=== PATIENT | female | born 1975 | race Hispanic/Latino ===

== ENCOUNTER 2017-11-12 13:38 | Inpatient (IN) | payer MEDICARE, OTHER ==
[~2017-11-12] VITALS: Ht 167.6 cm; Wt 79.8 kg
[~2017-11-12 13:38] MED LIST: ASCORBIC ACID500 MG PO; BENTYL10 MG PO; CARAFATE1 GM PEG; CARAFATE1 GM/10 ML PO; CARVEDILOL6.25 MG PO; CYMBALTA20 MG; CYMBALTA60 MG PO; DEXILANT60 MG PO; DOK100 MG PO; DOXEPIN HCL75 MG PO; FEOSOL325 MG PO; GABAPENTIN100 MG PO; HUMALOG100 UNITS/ SQ; HUMULIN 70100 UNIT/1 SC; KLOR-CON M2020 MEQ PO; LACTULOSE20 GM/30 M PO; LANTUS100 UNIT/1 SQ; LANTUS100 UNITS/ SC; LISINOPRIL5 MG PO; LOVENOX40 MG/0.4 SC; LYRICA75 MG PO; METFORMIN HCL500 MG PO; METOCLOPRAMIDE10 MG PO; NEXIUM40 MG PO; NORCO 7.5-3251 EACH PO; NOVOLOG100 UNIT/1 SQ; ONDANSETRON4 MG/2 M1 IV; PROTONIX40 MG/ML PO; REGLAN10 MG PO; TRAZODONE HCL50 MG PO; TRIPLE ANTIBIO0.9 GM TOP; ULTRAM50 MG PO; VITAL CAL GT; ZOFRAN4 MG PO; insulin; lisinopril
[2017-11-12 14:12] LABS: BILIRUBIN,URINE NEGATIVE (NEGATIVE); KETONES,URINE 2+ (NEGATIVE); LEUKOCYTE ESTERASE ,URINE NEGATIVE (NEGATIVE); NITRITE,URINE NEGATIVE (NEGATIVE); URINE UROBILINOGEN 0.2 mg/dL (0.2 - 1)
[2017-11-12 14:14] LABS: CLARITY,URINE HAZY (CLEAR); COLOR,URINE YELLOW (YELLOW); PROTEIN,URINE DIPSTICK 2+ (NEGATIVE)
[2017-11-12 14:19] LABS: RBC,URINE 0-5 /HPF (0-5); WBC,URINE (MAN) 0-5 /HPF (0-5)
[2017-11-12 14:20] LABS: BACTERIA,URINE FEW /HPF; EPITHELIAL CELLS,URINE MODERATE /LPF
[2017-11-12] MEDS ORDERED: SODIUM CHLORIDE FLUSH 10 ML SYR INJ PRN (14:30)
[2017-11-12] MEDS ORDERED: KETOROLAC TROMETHAMINE 30 MG/ML VIAL IV ONE (14:45)
[2017-11-12] MEDS ORDERED: ONDANSETRON HCL INJ 2 MG/ML VIAL IV ONE (14:45)
[2017-11-12 16:22] LABS: BASOPHILS % 0.3 % (0.0-1.0); HEMATOCRIT 32.6 % (34.2-44.1); HEMOGLOBIN 10.7 g/dL (12.0-16.0); LYMPHOCYTES # (AUTO) 0.7 (1.0-3.2); LYMPHOCYTES % 6.6 % (18.0-39.1); MEAN CORPUSCULAR HEMOGLOBIN 31.4 pg (28-32); MEAN CORPUSCULAR HGB CONC 32.8 g/dL (31-35); MEAN CORPUSCULAR VOLUME 95.6 fL (81-99); MONOCYTES # (AUTO) 0.2 (0.2-0.8); MONOCYTES % 2.2 % (4.4-11.3); NEUTROPHILS # (AUTO) 9.3 (2.1-6.9); NEUTROPHILS % 90.6 % (38.7-80.0); PLATELET COUNT 186 x10e3/uL (140-360); RED BLOOD COUNT 3.41 x10e6/uL (3.6-5.1); RED CELL DISTRIBUTION WIDTH 11.9 % (11.7-14.4)
[2017-11-12 16:39] LABS: ALBUMIN 4.1 g/dL (3.5-5.0); ANION GAP 17.3 mmol/L (8-16); CALCIUM 9.1 mg/dL (8.4-10.2); CREATININE, SERUM 1.46 mg/dL (0.57-1.11); POTASSIUM 4.3 mmol/L (3.5-5.1)
[2017-11-12] MEDS ORDERED: HYDROMORPHONE 2MG/ML INJ IV ONE ×2 (17:15→19:00)
[2017-11-12] MEDS ORDERED: NIFEDIPINE 10 MG CAP PO STA (18:14)
[2017-11-12] MEDS ORDERED: SODIUM CHLORIDE 0.9% 1000ML 1,000 ML IV SCH ×2 (18:15→19:27)
[2017-11-12] MEDS ORDERED: PROMETHAZINE 25MG/ NS 50ML (IV) IV ONE (18:30)
[2017-11-12] MEDS ORDERED: FOSAMAX70 MG PO (19:19)
[2017-11-12] MEDS ORDERED: DEXTROSE 50% SYRINGE 50 ML IV PRN (19:30)
[2017-11-12] MEDS: SODIUM CHLORIDE 0.9% 1000ML 1,000 ML IV SCH (20:00)
[2017-11-12] MEDS: SUCRALFATE 1 GM TAB PO SCH (21:40)
[2017-11-12] MEDS: HYDROMORPHONE 2MG/ML INJ IV PRN (21:43)
[2017-11-12] MEDS: ONDANSETRON HCL INJ 2 MG/ML VIAL IV PRN (21:44)
[2017-11-12] MEDS: INSULIN REGULAR, HUMAN 100 UNIT/1 ML 3ML VIAL SQ SCH (22:00)
[2017-11-13] VITALS (8 sets, daily range): BP systolic 101–144; BP diastolic 57–90
[2017-11-13] MEDS: METOCLOPRAMIDE HCL 10 MG/2ML VIAL IV SCH ×2 (00:45→06:18)
[2017-11-13] MEDS: HYDROMORPHONE 2MG/ML INJ IV PRN ×6 (00:46→21:12)
[2017-11-13] MEDS: ONDANSETRON HCL INJ 2 MG/ML VIAL IV PRN ×4 (04:21→21:12)
[2017-11-13] MEDS: SODIUM CHLORIDE 0.9% 1000ML 1,000 ML IV SCH ×2 (06:12→17:16)
[2017-11-13 06:16] LABS: BASOPHILS % 0.2 % (0.0-1.0); EOSINOPHILS % 0.3 % (0.0-6.0); HEMATOCRIT 25.8 % (34.2-44.1); HEMOGLOBIN 8.9 g/dL (12.0-16.0); LYMPHOCYTES # (AUTO) 1.9 (1.0-3.2); LYMPHOCYTES % 17.3 % (18.0-39.1); MEAN CORPUSCULAR HEMOGLOBIN 31.3 pg (28-32); MEAN CORPUSCULAR HGB CONC 34.5 g/dL (31-35); MEAN CORPUSCULAR VOLUME 90.8 fL (81-99); MONOCYTES # (AUTO) 0.8 (0.2-0.8); NEUTROPHILS # (AUTO) 8.1 (2.1-6.9); PLATELET COUNT 143 x10e3/uL (140-360); RED BLOOD COUNT 2.84 x10e6/uL (3.6-5.1); RED CELL DISTRIBUTION WIDTH 11.7 % (11.7-14.4)
[2017-11-13 06:32] LABS: ALBUMIN 3.2 g/dL (3.5-5.0); ANION GAP 13.7 mmol/L (8-16); CALCIUM 8.1 mg/dL (8.4-10.2); CREATININE, SERUM 1.08 mg/dL (0.57-1.11); POTASSIUM 3.7 mmol/L (3.5-5.1)
[2017-11-13] MEDS: INSULIN REGULAR, HUMAN 100 UNIT/1 ML 3ML VIAL SQ SCH ×4 (07:30→21:04)
[2017-11-13] MEDS: SUCRALFATE 1 GM TAB PO SCH ×4 (07:50→21:02)
[2017-11-13] MEDS: PANTOPRAZOLE 40 MG 10ML VIAL IV SCH ×2 (09:02→17:16)
[2017-11-13] MEDS ORDERED: METOCLOPRAMIDE HCL 10 MG/2ML VIAL IV PRN (10:30)
[2017-11-13 10:51] LABS: CHOL/HDL RATIO 2.8 (3.0-3.6)
[2017-11-13] MEDS: LEVOFLOXACIN 500MG/D5W 100ML 100 ML IV SCH (11:00)
[2017-11-13] MEDS: METRONIDAZOLE 500MG/NS 100ML 100 ML IV SCH ×2 (14:30→21:02)
[2017-11-14] VITALS (8 sets, daily range): BP systolic 92–173; BP diastolic 50–105
[2017-11-14] MEDS: SODIUM CHLORIDE 0.9% 1000ML 1,000 ML IV SCH ×4 (01:45→21:45)
[2017-11-14] MEDS: ONDANSETRON HCL INJ 2 MG/ML VIAL IV PRN ×3 (03:03→22:57)
[2017-11-14] MEDS: HYDROMORPHONE 2MG/ML INJ IV PRN ×7 (03:03→22:57)
--- NOTE | 2017-11-14 04:21 | History and Physical ---
PRIMARY CARE PHYSICIAN: Dr. Tejeda. Gastroenterology, Dr. Melissa. Neurosurgeon, Dr. Landaverde. CHIEF COMPLAINT: Abdominal pain, nausea, vomiting, and back pain. HISTORY OF PRESENT ILLNESS: This is a 42-year-old woman with a history of diabetic gastroparesis and lumbar disease with osteomyelitis in 2015, now developing nausea, vomiting and abdominal pain with radiation to the lower back. Therefore, she came to the hospital. Here, she was found to have acute kidney injury and severe lumbar stenosis with lumbar diskitis and other findings. She is admitted for further evaluation and management. PAST MEDICAL HISTORY: Diabetes mellitus; diabetic gastroparesis status post gastric pacemaker, status post removal; anemia; depression; osteomyelitis at the lumbar region in July 2016. PAST SURGICAL HISTORY: Cholecystectomy; appendectomy; hysterectomy; tubal ligation; carpal tunnel release surgery; eye surgery; lumbar surgery; partial gastric resection; gastric pacemaker, status post removal; PEG tube placement, status post removal. ALLERGIES: PER ELECTRONIC MEDICAL RECORDS. FAMILY HISTORY/SOCIAL HISTORY: Patient is . She has 1 child. No alcohol or history of cigarettes. MEDICATIONS: Per electronic medical records. REVIEW OF SYSTEMS: Denies any dizziness or chest pain. PHYSICAL EXAMINATION VITAL SIGNS: Reviewed. GENERAL APPEARANCE: A tired-appearing woman resting in the bed. HEENT: Anicteric. Pupils responsive to light. No oral lesions. CARDIOVASCULAR: Normal S1 and S2. LUNGS: Moderate breath sounds. ABDOMEN: Soft and nondistended. She has tenderness in the periumbilical region, but there is also diffuse tenderness in the abdomen. EXTREMITIES: No edema or calf tenderness. NEUROLOGIC: She is alert and oriented times 3. She moved all extremities. SKIN: Dry. PSYCHIATRIC: Flat affect. LABS: Reviewed. MEDICATIONS: Reviewed. ASSESSMENT AND PLAN: A 42-year-old woman with 1. Acute gastroenteritis. We will treat with Flagyl and Levaquin. 2. Acute kidney injury. Rehydrate and re-assess. 3. Severe lumbar stenosis/lumbar diskitis and possible osteomyelitis. She has had of the lumbar region in the past. She did have leukocytosis on admission, was tachycardic but did not have a fever. Blood pressure has been high, but that has fallen to 101/57. Unclear as whether there is any ongoing infection. Will need a magnetic resonance imaging to further evaluate. 4. Normocytic anemia, moderate. We will follow up and consider anemia panel. 5. Diabetes mellitus. We will obtain hemoglobin A1c and lipid panel. 6. Diabetic gastroparesis. We will continue sucralfate proton-pump inhibitor and use p.r.n. Reglan. 7. Prophylaxis: Continue proton-pump inhibitor and sequential compression device. DISPOSITION: MRI of the lumbar region. In the meantime, we will empirically use Levaquin and Flagyl for gastroenteritis. Job#: [id number]
[2017-11-14] MEDS: METRONIDAZOLE 500MG/NS 100ML 100 ML IV SCH ×3 (05:47→21:08)
[2017-11-14] MEDS: INSULIN REGULAR, HUMAN 100 UNIT/1 ML 3ML VIAL SQ SCH ×4 (07:30→19:51)
[2017-11-14] MEDS: SUCRALFATE 1 GM TAB PO SCH ×4 (08:42→21:00)
[2017-11-14] MEDS: PANTOPRAZOLE 40 MG 10ML VIAL IV SCH ×2 (08:42→16:20)
[2017-11-14] MEDS: LEVOFLOXACIN 500MG/D5W 100ML 100 ML IV SCH (09:03)
[2017-11-14 10:22] LABS: BASOPHILS % 0.8 % (0.0-1.0); EOSINOPHILS # (AUTO) 0.1 (0.0-0.4); EOSINOPHILS % 2.1 % (0.0-6.0); HEMATOCRIT 26.5 % (34.2-44.1); HEMOGLOBIN 8.9 g/dL (12.0-16.0); LYMPHOCYTES # (AUTO) 1.7 (1.0-3.2); LYMPHOCYTES % 32.5 % (18.0-39.1); MEAN CORPUSCULAR HEMOGLOBIN 30.8 pg (28-32); MEAN CORPUSCULAR HGB CONC 33.6 g/dL (31-35); MEAN CORPUSCULAR VOLUME 91.7 fL (81-99); MONOCYTES # (AUTO) 0.4 (0.2-0.8); MONOCYTES % 7.9 % (4.4-11.3); NEUTROPHILS % 56.5 % (38.7-80.0); RED BLOOD COUNT 2.89 x10e6/uL (3.6-5.1); RED CELL DISTRIBUTION WIDTH 11.6 % (11.7-14.4)
[2017-11-14] MEDS ORDERED: LORAZEPAM INJ 2 MG/ML VIAL IV ONE (10:30)
[2017-11-14 10:41] LABS: PLATELET COUNT 138 x10e3/uL (140-360)
[2017-11-14] MEDS: METOCLOPRAMIDE HCL 10 MG/2ML VIAL IV SCH ×2 (13:06→18:35)
--- NOTE | 2017-11-14 14:08 | Diagnostic Imaging Report ---
EXAMINATION: MRI of the lumbar spine without contrast HISTORY: Low back pain since one week, history of lumbar osteomyelitis suspected discitis COMPARISON: Lumbar spine MRI on 08/24/2016 TECHNIQUE: Sagittal T1, T2, STIR; axial T2 and proton density. FINDINGS: It is assumed that there are 5 lumbar vertebrae. Curvature/Alignment: Mild kyphotic malalignment centered at L4-5 Vertebrae: Interval improvement of previously seen discitis osteomyelitis at L4-5. There is farther compression deformity of the L4 and L5 vertebral bodies, no interbody fusion is seen at this time. The bone marrow is completely fatty replaced at L4 and L5. Resolution of previously seen paraspinal soft tissues inflammatory changes. Conus: Normal, terminating at T12 Cauda equina: Unremarkable. Lower thoracic: Unremarkable. Paraspinal soft tissues: Unremarkable. Degenerative changes: L1-L2: Unremarkable. L2-L3: Unremarkable. L3-L4: Unremarkable. L4-L5: Progression of intervertebral disc collapse, persistent marginal disc osteophyte asymmetric to the left, as well as facet arthrosis. Mild right and moderately severe left foraminal stenosis. Partial effacement of the left lateral recess. L5-S1: Facet arthrosis without stenosis Sacroiliac joints: Mild degenerative changes with marginal osteophytes seen in the right. IMPRESSION: 1. Resolution of previously seen discitis osteomyelitis at L4-L5. No new acute infection. 2. Worsening L4 and L5 vertebral bodies partial collapse, with L4-L5 kyphotic malalignment . No interbody fusion. 3. Moderately severe left and mild right foraminal stenosis at L4-L5. Signed by: Dr. Agnieszka Crowder M.D. on 11/14/2017 2:04 PM
[2017-11-15] VITALS: BP 144/87
[2017-11-15] MEDS: METOCLOPRAMIDE HCL 10 MG/2ML VIAL IV SCH ×4 (00:34→17:29)
[2017-11-15] MEDS: HYDROMORPHONE 2MG/ML INJ IV PRN ×6 (02:09→21:45)
[2017-11-15 04:00] VITALS: BP 127/81
[2017-11-15 05:58] LABS: BASOPHILS % 0.4 % (0.0-1.0); EOSINOPHILS # (AUTO) 0.1 (0.0-0.4); EOSINOPHILS % 2.6 % (0.0-6.0); HEMATOCRIT 25.7 % (34.2-44.1); HEMOGLOBIN 8.9 g/dL (12.0-16.0); LYMPHOCYTES # (AUTO) 1.7 (1.0-3.2); LYMPHOCYTES % 33.9 % (18.0-39.1); MEAN CORPUSCULAR HEMOGLOBIN 30.4 pg (28-32); MEAN CORPUSCULAR HGB CONC 34.6 g/dL (31-35); MEAN CORPUSCULAR VOLUME 87.7 fL (81-99); MONOCYTES # (AUTO) 0.4 (0.2-0.8); NEUTROPHILS # (AUTO) 2.8 (2.1-6.9); NEUTROPHILS % 54.9 % (38.7-80.0); PLATELET COUNT 153 x10e3/uL (140-360); RED BLOOD COUNT 2.93 x10e6/uL (3.6-5.1); RED CELL DISTRIBUTION WIDTH 11.2 % (11.7-14.4)
[2017-11-15] MEDS: METRONIDAZOLE 500MG/NS 100ML 100 ML IV SCH ×3 (06:05→21:33)
[2017-11-15 06:17] LABS: % IRON SATURATION 36 % (15-50); ANION GAP 12.3 mmol/L (8-16); BLOOD UREA NITROGEN 6 mg/dL (7-26); BUN/CREATININE RATIO 8 (6-25); CALCIUM 8.2 mg/dL (8.4-10.2); CARBON DIOXIDE 23 mmol/L (22-29); CHLORIDE 104 mmol/L (98-107); CREATININE, SERUM 0.79 mg/dL (0.57-1.11); EST GLOMERULAR FILTRATION RATE > 60 ML/MIN (60-); GLUCOSE 121 mg/dL (74-118); IRON 70 ug/dL (50-170); POTASSIUM 3.3 mmol/L (3.5-5.1); SODIUM 136 mmol/L (136-145); TOTAL IRON BINDING CAPACITY 192 ug/dL (261-478); TRANSFERRIN 137 mg/dL (180-382)
[2017-11-15 06:41] LABS: FERRITIN 528.41 ng/mL (4.63-204.00)
[2017-11-15 06:54] LABS: FOLATE 17.7 ng/mL (7.0-15.4)
[2017-11-15] MEDS: INSULIN REGULAR, HUMAN 100 UNIT/1 ML 3ML VIAL SQ SCH ×4 (07:30→23:37)
[2017-11-15] MEDS: SUCRALFATE 1 GM TAB PO SCH ×4 (07:30→21:33)
[2017-11-15 08:18] VITALS: BP 124/66
[2017-11-15] MEDS: PANTOPRAZOLE 40 MG 10ML VIAL IV SCH ×2 (08:45→17:29)
[2017-11-15] MEDS: SODIUM CHLORIDE 0.9% 1000ML 1,000 ML IV SCH ×2 (09:46→17:45)
[2017-11-15] MEDS ORDERED: POTASSIUM CHLORIDE 20MEQ/100ML 100 ML IV ONE (10:00)
[2017-11-15 12:33] VITALS: BP 127/66
[2017-11-15] MEDS: LEVOFLOXACIN 500MG/D5W 100ML 100 ML IV SCH (12:33)
[2017-11-15 16:49] VITALS: BP 119/64
[2017-11-15 20:00] VITALS: BP 124/72
[2017-11-15] MEDS: ONDANSETRON HCL INJ 2 MG/ML VIAL IV PRN (21:56)
[2017-11-16] VITALS (8 sets, daily range): BP systolic 123–153; BP diastolic 70–89
[2017-11-16] MEDS: HYDROMORPHONE 2MG/ML INJ IV PRN ×5 (02:58→20:58)
[2017-11-16] MEDS: METOCLOPRAMIDE HCL 10 MG/2ML VIAL IV SCH ×4 (03:21→17:19)
[2017-11-16] MEDS: SODIUM CHLORIDE 0.9% 1000ML 1,000 ML IV SCH ×2 (03:45→13:05)
[2017-11-16] MEDS: METRONIDAZOLE 500MG/NS 100ML 100 ML IV SCH ×3 (05:14→22:14)
[2017-11-16 06:08] LABS: BASOPHILS % 0.4 % (0.0-1.0); EOSINOPHILS # (AUTO) 0.1 (0.0-0.4); EOSINOPHILS % 2.1 % (0.0-6.0); HEMATOCRIT 24.9 % (34.2-44.1); HEMOGLOBIN 8.8 g/dL (12.0-16.0); LYMPHOCYTES # (AUTO) 1.7 (1.0-3.2); LYMPHOCYTES % 35.3 % (18.0-39.1); MEAN CORPUSCULAR HGB CONC 35.3 g/dL (31-35); MEAN CORPUSCULAR VOLUME 87.7 fL (81-99); MONOCYTES # (AUTO) 0.4 (0.2-0.8); MONOCYTES % 7.6 % (4.4-11.3); NEUTROPHILS # (AUTO) 2.7 (2.1-6.9); NEUTROPHILS % 54.4 % (38.7-80.0); PLATELET COUNT 159 x10e3/uL (140-360); RED BLOOD COUNT 2.84 x10e6/uL (3.6-5.1); RED CELL DISTRIBUTION WIDTH 11.2 % (11.7-14.4)
[2017-11-16 06:37] LABS: ANION GAP 11.2 mmol/L (8-16); BLOOD UREA NITROGEN 7 mg/dL (7-26); BUN/CREATININE RATIO 9 (6-25); CALCIUM 8.2 mg/dL (8.4-10.2); CARBON DIOXIDE 27 mmol/L (22-29); CHLORIDE 104 mmol/L (98-107); CREATININE, SERUM 0.81 mg/dL (0.57-1.11); EST GLOMERULAR FILTRATION RATE > 60 ML/MIN (60-); GLUCOSE 136 mg/dL (74-118); POTASSIUM 3.2 mmol/L (3.5-5.1); SODIUM 139 mmol/L (136-145)
[2017-11-16] MEDS: INSULIN REGULAR, HUMAN 100 UNIT/1 ML 3ML VIAL SQ SCH ×4 (07:30→21:02)
[2017-11-16] MEDS: SUCRALFATE 1 GM TAB PO SCH ×4 (08:58→20:57)
[2017-11-16] MEDS: PANTOPRAZOLE 40 MG 10ML VIAL IV SCH ×2 (08:58→17:19)
[2017-11-16] MEDS ORDERED: POTASSIUM CHLORIDE 20 MEQ TAB CR PO STA (09:20)
[2017-11-16] MEDS: ONDANSETRON HCL INJ 2 MG/ML VIAL IV PRN ×3 (09:37→20:58)
[2017-11-16] MEDS: CYANOCOBALAMIN INJ 1,000 MCG/ML VIAL IM SCH (09:38)
[2017-11-16] MEDS: LEVOFLOXACIN 500MG/D5W 100ML 100 ML IV SCH (09:38)
[2017-11-16] MEDS: DOCUSATE SODIUM LIQD 100 MG/10 ML UDC NG SCH (17:21)
[2017-11-17] VITALS: BP 136/84
[2017-11-17] MEDS: METOCLOPRAMIDE HCL 10 MG/2ML VIAL IV SCH ×3 (00:33→12:22)
[2017-11-17] MEDS: HYDROMORPHONE 2MG/ML INJ IV PRN ×5 (00:33→14:40)
--- NOTE | 2017-11-17 01:20 | Progress Note ---
DATE: November 16, 2017 SYNTHETIC FILAMENT SPINNER: Dr. Jaskaran Tejeda. CHIEF COMPLAINT: Dehydration, gastroparesis, vomiting DIET: Cardiac diet. ALLERGIES: NO KNOWN DRUG ALLERGIES. SUBJECTIVE: Patient reports feeling much better, requesting to be discharged. MEDICATIONS: Please see MAR. OBJECTIVE VITALS: Temperature 98.1, pulse 90, blood pressure 126/73, respirations 18, satting 96%. BMI 28.4. GENERAL: Patient is awake, alert, oriented times 3. Speech is clear. LUNGS: Clear to auscultation bilaterally with normal respiratory efforts. HEENT: Extraocular muscles are intact. Sclerae are anicteric. ABDOMEN: Soft. Bowel sounds present. It is nontender, nondistended. CARDIOVASCULAR: Regular rate and rhythm. NECK: Supple. Trachea is midline. EXTREMITIES: No calf tenderness. No edema. NEUROLOGICAL: Nonfocal. LABS: Sodium 139, potassium 3.2, chloride 104, CO2 27, BUN 7, creatinine 0.81, glucose 136. White count 4.87; hemoglobin 8.8, came down from 8.9 yesterday; hematocrit 24.9, came down from 25.7; platelets 159,000. MRI results read: Impression, 1. Resolution of previously seen dissecting osteomyelitis at L4-L5, no acute infection. 2. Worsening L4-L5 vertebral bodies, partially collapsed with L4-L5 kyphotic malalignment. No interbody fusion. 3. Moderately severe left and mild right foraminal stenosis at L4-L5. DIAGNOSES 1. Acute gastroenteritis that has been resolved. 2. Acute kidney injury: Creatinine is now 0.81 which is stable. 3. Hypokalemia: We will replete with potassium 40 mEq p.o. times 1 dose. 4. Severe lumbar stenosis: This will likely need to be treated as outpatient and be followed up by a neurosurgeon for possible surgical interventions, but will require further workup as outpatient. 5. Anemia: Today is 8.8. Will collect stools for occult blood. 6. Diabetes mellitus type 2: Will continue on sliding scale and monitor blood sugars. 7. Vitamin B12 deficiency: Patient's total iron binding capacity is 192, low. Will start patient on vitamin B12 1000 mcg 1 p.o. daily. 8. Gastroparesis: Will continue on Reglan and pain medication. Dictated by Andrew Rodriguez NP. Job#: [id number]
[2017-11-17] MEDS: ONDANSETRON HCL INJ 2 MG/ML VIAL IV PRN ×2 (04:25→11:39)
[2017-11-17] MEDS: SODIUM CHLORIDE 0.9% 1000ML 1,000 ML IV SCH ×2 (04:34→09:45)
[2017-11-17 04:38] VITALS: BP 118/73
[2017-11-17] MEDS: METRONIDAZOLE 500MG/NS 100ML 100 ML IV SCH ×2 (05:56→14:00)
[2017-11-17 06:46] LABS: BASOPHILS % 0.6 % (0.0-1.0); EOSINOPHILS # (AUTO) 0.1 (0.0-0.4); EOSINOPHILS % 2.8 % (0.0-6.0); HEMATOCRIT 23.7 % (34.2-44.1); HEMOGLOBIN 8.3 g/dL (12.0-16.0); LYMPHOCYTES # (AUTO) 1.6 (1.0-3.2); LYMPHOCYTES % 31.8 % (18.0-39.1); MEAN CORPUSCULAR HEMOGLOBIN 30.9 pg (28-32); MEAN CORPUSCULAR VOLUME 88.1 fL (81-99); MONOCYTES # (AUTO) 0.4 (0.2-0.8); MONOCYTES % 7.4 % (4.4-11.3); NEUTROPHILS # (AUTO) 2.9 (2.1-6.9); NEUTROPHILS % 57.2 % (38.7-80.0); PLATELET COUNT 162 x10e3/uL (140-360); RED BLOOD COUNT 2.69 x10e6/uL (3.6-5.1); RED CELL DISTRIBUTION WIDTH 11.3 % (11.7-14.4)
[2017-11-17 07:00] VITALS: BP 138/95
[2017-11-17 07:10] LABS: ANION GAP 11.4 mmol/L (8-16); BLOOD UREA NITROGEN 5 mg/dL (7-26); BUN/CREATININE RATIO 7 (6-25); CARBON DIOXIDE 26 mmol/L (22-29); CHLORIDE 104 mmol/L (98-107); CREATININE, SERUM 0.76 mg/dL (0.57-1.11); EST GLOMERULAR FILTRATION RATE > 60 ML/MIN (60-); GLUCOSE 130 mg/dL (74-118); POTASSIUM 3.4 mmol/L (3.5-5.1); SODIUM 138 mmol/L (136-145)
[2017-11-17] MEDS ORDERED: VITAMIN B12 PO (07:18)
[2017-11-17] MEDS ORDERED: REGLAN10 MG PO (07:18)
[2017-11-17] MEDS ORDERED: CARAFATE1 GM PO (07:18)
[2017-11-17] MEDS: INSULIN REGULAR, HUMAN 100 UNIT/1 ML 3ML VIAL SQ SCH ×2 (07:30→12:23)
[2017-11-17] MEDS: SUCRALFATE 1 GM TAB PO SCH ×2 (07:30→11:30)
[2017-11-17] MEDS: CYANOCOBALAMIN INJ 1,000 MCG/ML VIAL IM SCH (09:30)
[2017-11-17] MEDS: PANTOPRAZOLE 40 MG 10ML VIAL IV SCH (09:30)
[2017-11-17] MEDS: DOCUSATE SODIUM LIQD 100 MG/10 ML UDC NG SCH (09:39)
[2017-11-17] MEDS: LEVOFLOXACIN 500MG/D5W 100ML 100 ML IV SCH (09:53)
[2017-11-17 11:41] VITALS: BP 153/88
[2017-11-17] MEDS ORDERED: ACETAMINOPHEN/CODEINE 300MG - 30MG TAB PO PRN (15:15)
[2017-11-17 15:46] VITALS: BP 117/68
--- NOTE | 2017-11-18 02:43 | Discharge Summary ---
ADMITTING DIAGNOSES 1. Acute gastroenteritis. 2. Acute kidney injury. 3. Severe lumbar stenosis/diskitis and possible osteomyelitis. 4. Normocytic anemia. 5. Diabetes. 6. Diabetic gastroparesis. DISCHARGE DIAGNOSES 1. Acute gastroenteritis. 2. Acute kidney injury. 3. Severe lumbar stenosis/diskitis and possible osteomyelitis. 4. Normocytic anemia. 5. Diabetes. 6. Diabetic gastroparesis. 7. Ruled out osteomyelitis. HISTORY: Patient has a history of diabetes; diabetic gastroparesis, status post gastric pacemaker, status post removal; anemia; depression; osteomyelitis in the lumbar region in July 2016. Surgical history of cholecystectomy; appendectomy; hysterectomy; tubal ligation; carpal tunnel release surgery; eye surgery; lumbar surgery; partial gastric resection; gastric pacemaker, status post removal; PEG tube placement, status post removal. HOSPITAL COURSE: A 42-year-old female who presented with nausea, vomiting, and abdominal pain with radiation to her lower back. Therefore, she came to the hospital. Upon admission, she was found to have CHACHO and severe lumbar stenosis with lumbar diskitis. On admission, she was started on IV Flagyl and Levaquin, started on pain medicine for her back and rehydrated with IV fluid. An MRI was ordered which showed resolution of previously seen diskitis, osteomyelitis at L4-L5. No acute infection, worsening L4 and L5 vertebral body partial collapse with L4-L5 kyphotic malalignment. No lesion. Moderately severe left and mild right foraminal stenosis at L4-L5. IR was consulted for possible kyphoplasty. Urine culture negative. Patient was found to have anemia at time of admission. Labs stayed stable. At discharge, WBC was 5.03, hemoglobin of 8.3, hematocrit of 23.7, and platelets of 162,000. Vital signs stable. On day of discharge, patient is tolerating diet, says she feels much better and she is ready to go home to her daughter. She says she will follow up with neurosurgery for the L4-L5 issues and will follow up with her PCP for the anemia. She says she already has someone that takes care of that and she does not want blood. She is ready to go home, tolerating diet, pain control, sent home with Reglan to help with the gastroparesis. Patient is to continue on home medicines as well. Dictated by Gracie Islas NP REINIER MENDOZA MD Job#: [id number] CF
[2017-11-28] MEDS ORDERED: GLIMEPIRIDE2 MG PO (09:21)
== END 2017-11-17 16:50 | disposition home or self-care (01) | DRG 392 ==
LOC: ER 13:38 → ERHOLD 20:36 → IMCU 23:16 → OBSVTOIN 11-15 13:14
PROVIDERS: ADMIT Internal Medicine; ATTEND Internal Medicine
DX: K52.9 Noninfective gastroenteritis and colitis, unspecified (principal); N17.9 Acute kidney failure, unspecified; K31.84 Gastroparesis; E11.43 Type 2 diabetes mellitus with diabetic autonomic (poly)neuropathy; M46.26 Osteomyelitis of vertebra, lumbar region; E53.8 Deficiency of other specified B group vitamins; D64.9 Anemia, unspecified; Z79.4 Long term (current) use of insulin; F32.9 Major depressive disorder, single episode, unspecified; E86.0 Dehydration; E87.6 Hypokalemia; M47.816 Spondylosis without myelopathy or radiculopathy, lumbar region
CPT/HCPCS: 36415; 72148; 80048; 80053; 80061; 81001; 82150; 82607; 82728; 82746; 82948; 83036; 83540; 83690; 84466; 85025; 87086; 93005; 96360; 96372; 96374; 96376; 99284; G0378; J1642; J1956; J2060; J2405; J2550; J2765; J3420; J3480; J7030

== ENCOUNTER → 2017-11-30 | Day surgery (SDC) | payer MEDICARE, OTHER ==
[2017-11-28 10:13] LABS: ANION GAP 15.4 mmol/L (8-16); CALCIUM 8.3 mg/dL (8.4-10.2); CREATININE, SERUM 1.71 mg/dL (0.57-1.11); POTASSIUM 5.4 mmol/L (3.5-5.1)
[~2017-11-30] MED LIST changes: +BUPIVACAINE HCL 0.5% INJ 30 ML VIAL INJ ONE; +CARAFATE1 GM PO; +CEFAZOLIN SOD 2 GM/D5W 50ML 50 ML IV ONE; +DEXAMETHASONE SOD PHOS INJ 4 MG/ML VIAL ONE; +FENTANYL CITRATE/PF 100MCG/2 ML INJ ONE; +FOSAMAX70 MG PO; +GLIMEPIRIDE2 MG PO; +HEPARIN 500 UNITS/5ML MDV INJ ONE; +KETOROLAC TROMETHAMINE 30 MG/ML VIAL ONE; +LIDOCAINE HCL 2% LOCAL INJ 5 ML SDV VIAL INJ ONE; +MIDAZOLAM HCL 2 MG/2 ML VIAL ONE; +ONDANSETRON HCL INJ 2 MG/ML VIAL ONE; +PROPOFOL IV EMULSION 10 MG/ML 20 ML VIAL ONE; +SEVOFLURANE INHAL SOLN 250 ML PEN BTL ONE; +VITAMIN B12 PO
--- NOTE | 2017-12-01 09:32 | Operative Report ---
DATE OF PROCEDURE: November 30, 2017 PREOPERATIVE DIAGNOSIS: Right carpal tunnel syndrome. POSTOPERATIVE DIAGNOSIS: Right carpal tunnel syndrome. OPERATION/PROCEDURE PERFORMED: Patient underwent an open right carpal tunnel release. AUTOMOTIVE SERVICES MANAGER: None. ANESTHESIA: General endotracheal intubation anesthesia. IV FLUIDS: Per the anesthesia record. DESCRIPTION OF OPERATIVE PROCEDURE: Ms. George was taken to the operating room and placed in supine position on the operating table. Following the induction of general anesthesia as well as endotracheal intubation, the patient's right upper extremity was examined under anesthesia. She was found to have a normal-appearing hand. The patient's upper lower extremity was prepped and draped in standard surgical fashion. The case was begun by creating an incision in the palm of the hand roughly in line with the thenar palmar crease. This incision was carried through skin only. Blunt dissection was used to deepen the incision to the level of the transverse carpal ligament. The distal edge of the transverse carpal ligament was identified and a hemostat was placed beneath the transverse carpal ligament. The transverse carpal ligament was then divided in line with the skin incision. The floor of carpal canal was evaluated and found to have no abnormalities. The tourniquet was deflated and hemostasis was obtained prior to closing the wound. The wound was then closed in a single layer fashion. Sterile dressings were applied. The patient was awakened and taken to the postanesthesia care unit in stable condition. Job#: [id number] SAK
== END | disposition home or self-care (01) ==
LOC: OR 11:29
PROVIDERS: ATTEND Specialist
DX: G56.01 Carpal tunnel syndrome, right upper limb (principal); I10 Essential (primary) hypertension; E11.9 Type 2 diabetes mellitus without complications; D64.9 Anemia, unspecified; K25.9 Gastric ulcer, unspecified as acute or chronic, without hemorrhage or perforation; Z01.810 Encounter for preprocedural cardiovascular examination; Z01.812 Encounter for preprocedural laboratory examination; Z79.4 Long term (current) use of insulin
CPT/HCPCS: 36415 ×2; 64721; 80048; 82948; 93005; J1100; J1885; J2001; J2250; J2405

== ENCOUNTER 2018-07-26 13:31 | Observation (INO) | payer MEDICARE, OTHER ==
[~2018-07-26] VITALS: Ht 167.6 cm; Wt 83.2 kg
[~2018-07-26 13:31] MED LIST changes: -BUPIVACAINE HCL 0.5% INJ 30 ML VIAL INJ ONE; -CEFAZOLIN SOD 2 GM/D5W 50ML 50 ML IV ONE; -DEXAMETHASONE SOD PHOS INJ 4 MG/ML VIAL ONE; -FENTANYL CITRATE/PF 100MCG/2 ML INJ ONE; -HEPARIN 500 UNITS/5ML MDV INJ ONE; -KETOROLAC TROMETHAMINE 30 MG/ML VIAL ONE; -LIDOCAINE HCL 2% LOCAL INJ 5 ML SDV VIAL INJ ONE; -MIDAZOLAM HCL 2 MG/2 ML VIAL ONE; -ONDANSETRON HCL INJ 2 MG/ML VIAL ONE; -PROPOFOL IV EMULSION 10 MG/ML 20 ML VIAL ONE; -SEVOFLURANE INHAL SOLN 250 ML PEN BTL ONE
[2018-07-26] MEDS ORDERED: SODIUM CHLORIDE 0.9% 1000ML 1,000 ML IV STA (13:44)
[2018-07-26] MEDS ORDERED: DONNATAL/LIDOCAINE/MAALOX 30 ML SUSP PO ONE ×2 (13:45→14:15)
[2018-07-26 14:09] LABS: BASOPHILS % 0.2 % (0.0-1.0); HEMATOCRIT 32.7 % (34.2-44.1); HEMOGLOBIN 11.5 g/dL (12.0-16.0); LYMPHOCYTES # (AUTO) 0.7 (1.0-3.2); LYMPHOCYTES % 4.2 % (18.0-39.1); MEAN CORPUSCULAR HEMOGLOBIN 30.6 pg (28-32); MEAN CORPUSCULAR HGB CONC 35.2 g/dL (31-35); MONOCYTES # (AUTO) 0.6 (0.2-0.8); MONOCYTES % 3.3 % (4.4-11.3); NEUTROPHILS # (AUTO) 15.8 (2.1-6.9); NEUTROPHILS % 91.6 % (38.7-80.0); PLATELET COUNT 240 x10e3/uL (140-360); RED BLOOD COUNT 3.76 x10e6/uL (3.6-5.1); RED CELL DISTRIBUTION WIDTH 12.2 % (11.7-14.4)
[2018-07-26 14:13] LABS: ALBUMIN 4.2 g/dL (3.5-5.0); ALBUMIN/GLOBULIN RATIO 1.2 (0.8-2.0); ANION GAP 21.7 mmol/L (8-16); CALCIUM 9.7 mg/dL (8.4-10.2); CREATININE, SERUM 1.3 mg/dL (0.57-1.11); POTASSIUM 3.7 mmol/L (3.5-5.1)
[2018-07-26] MEDS ORDERED: MORPHINE SULFATE INJ 4 MG/ML INJ IV NR (14:15)
[2018-07-26] MEDS ORDERED: MORPHINE SULFATE 2 MG/ML SYR ONE (14:19)
[2018-07-26] MEDS ORDERED: DIPHENHYDRAMINE HCL INJ 50 MG/ML VIAL IV ONE (14:30)
[2018-07-26] MEDS ORDERED: PANTOPRAZOLE 40 MG 10ML VIAL IV ONE (14:30)
[2018-07-26] MEDS ORDERED: MORPHINE SULFATE INJ 10 MG/ML IV ONE (14:30)
[2018-07-26] MEDS ORDERED: HALOPERIDOL LACTATE 5 MG/ML VIAL IM ONE (14:30)
[2018-07-26] MEDS ORDERED: METOCLOPRAMIDE HCL 10 MG/2ML VIAL IV ONE (14:30)
--- NOTE | 2018-07-26 14:52 | Diagnostic Imaging Report ---
Examination: Single AP view of the chest. COMPARISON: None. INDICATION: Nausea, vomiting, abdominal pain DISCUSSION: Left subclavian central venous port catheter is noted. The tip projects over the superior cavoatrial junction. Lungs are well expanded and without focal consolidation, pleural effusion, or pneumothorax. Cardiomediastinal contour and pulmonary vasculature are within normal limits. No acute osseous abnormality. IMPRESSION: 1. No acute cardiopulmonary abnormalities. Signed by: Dr. Luciano Khan M.D. on 07/26/2018 2:48 PM
[2018-07-26] MEDS ORDERED: PROMETHAZINE HCL (IM) 25 MG/ML VIAL IM ONE (15:00)
[2018-07-26] MEDS ORDERED: FENTANYL CITRATE/PF 100MCG/2 ML INJ IV ONE (15:15)
[2018-07-26] MEDS ORDERED: INSULIN REGULAR, HUMAN 100 UNIT/1 ML 3ML VIAL IV ONE (15:30)
[2018-07-26] MEDS ORDERED: PROMETHAZINE HCL (IM) 25 MG/ML VIAL IV PRN (15:45)
[2018-07-26] MEDS ORDERED: MORPHINE SULFATE 2 MG/ML SYR IV PRN (15:45)
[2018-07-26 16:18] LABS: BILIRUBIN,URINE NEGATIVE (NEGATIVE); CLARITY,URINE SL CLOUDY (CLEAR); COLOR,URINE YELLOW (YELLOW); KETONES,URINE 2+ (NEGATIVE); LEUKOCYTE ESTERASE ,URINE NEGATIVE (NEGATIVE); NITRITE,URINE NEGATIVE (NEGATIVE); PROTEIN,URINE DIPSTICK 2+ (NEGATIVE); URINE UROBILINOGEN 0.2 mg/dL (0.2 - 1)
[2018-07-26 16:24] LABS: BACTERIA,URINE MODERATE /HPF; EPITHELIAL CELLS,URINE MANY /LPF; TRANSITIONAL EPI CELLS,URINE FEW
[2018-07-26 17:34] VITALS: BP 164/86
[2018-07-26] MEDS ORDERED: ACETAMINOPHEN 325 MG TAB PO PRN (18:15)
[2018-07-26] MEDS ORDERED: HYDRALAZINE HCL 20 MG/ML VIAL IV PRN (18:15)
[2018-07-26] MEDS ORDERED: DEXTROSE 50% SYRINGE 50 ML IV PRN (18:15)
[2018-07-26 18:25] VITALS: BP 164/86
[2018-07-26 18:47] VITALS: BP 164/86
[2018-07-26 19:36] VITALS: BP 150/86
[2018-07-26] MEDS: ONDANSETRON HCL INJ 2 MG/ML VIAL IV PRN (19:50)
[2018-07-26] MEDS: MORPHINE SULFATE INJ 4 MG/ML INJ IV PRN (19:50)
[2018-07-26] MEDS: D5.45%NS/KCL 20MEQ 1,000 ML IV SCH (20:01)
[2018-07-26] MEDS: INSULIN LISPRO 100 UNIT/1 ML 3ML VIAL SQ SCH (21:00)
[2018-07-26] MEDS: DOXEPIN HCL 25 MG CAP PO SCH (22:16)
[2018-07-26] MEDS: METOCLOPRAMIDE HCL 10 MG/2ML VIAL IV SCH (22:16)
[2018-07-27] VITALS (7 sets, daily range): BP systolic 109–125; BP diastolic 65–79
[2018-07-27] MEDS: MORPHINE SULFATE INJ 4 MG/ML INJ IV PRN ×6 (00:08→20:45)
[2018-07-27] MEDS: PROMETHAZINE HCL (IM) 25 MG/ML VIAL IM PRN ×2 (00:08→04:08)
[2018-07-27 05:09] LABS: BASOPHILS % 0.2 % (0.0-1.0); HEMATOCRIT 27.9 % (34.2-44.1); HEMOGLOBIN 9.5 g/dL (12.0-16.0); LYMPHOCYTES # (AUTO) 1.2 (1.0-3.2); LYMPHOCYTES % 9.6 % (18.0-39.1); MEAN CORPUSCULAR HEMOGLOBIN 30.4 pg (28-32); MEAN CORPUSCULAR HGB CONC 34.1 g/dL (31-35); MEAN CORPUSCULAR VOLUME 89.4 fL (81-99); MONOCYTES # (AUTO) 0.6 (0.2-0.8); MONOCYTES % 5.1 % (4.4-11.3); NEUTROPHILS # (AUTO) 10.6 (2.1-6.9); NEUTROPHILS % 84.7 % (38.7-80.0); PLATELET COUNT 183 x10e3/uL (140-360); RED BLOOD COUNT 3.12 x10e6/uL (3.6-5.1); RED CELL DISTRIBUTION WIDTH 12.4 % (11.7-14.4)
[2018-07-27 05:32] LABS: ANION GAP 15.1 mmol/L (8-16); CALCIUM 8.3 mg/dL (8.4-10.2); CHOL/HDL RATIO 2.8 (3.0-3.6); CREATININE, SERUM 1.39 mg/dL (0.57-1.11); MAGNESIUM 1.6 MG/DL (1.3-2.1); POTASSIUM 4.1 mmol/L (3.5-5.1)
[2018-07-27] MEDS: INSULIN LISPRO 100 UNIT/1 ML 3ML VIAL SQ SCH ×4 (07:30→20:19)
[2018-07-27] MEDS: DOCUSATE SODIUM 100 MG CAP PO SCH ×2 (08:51→16:38)
[2018-07-27] MEDS: PANTOPRAZOLE 40 MG 10ML VIAL IV SCH (08:51)
[2018-07-27] MEDS: METOCLOPRAMIDE HCL 10 MG/2ML VIAL IV SCH ×4 (08:51→20:32)
[2018-07-27] MEDS: GABAPENTIN 100 MG CAP PO SCH ×2 (08:51→16:39)
[2018-07-27] MEDS: GLIMEPIRIDE 2 MG TAB PO SCH ×2 (08:51→16:38)
[2018-07-27] MEDS ORDERED: PANTOPRAZOLE SOD 40 MG TABEC PO SCH (09:00)
[2018-07-27] MEDS: CEFTRIAXONE SOD 1 GM VIAL IV SCH ×2 (09:54→20:32)
[2018-07-27] MEDS: OYST-CAL-D 500MG TABLET PO SCH ×2 (09:54→16:39)
[2018-07-27] MEDS ORDERED: POLYETHYLENE GLYCOL 3350 17 GM PACK PO PRN (10:00)
[2018-07-27] MEDS: D5.45%NS/KCL 20MEQ 1,000 ML IV SCH ×3 (11:00→20:45)
[2018-07-27 14:32] LABS: FREE T4 (FREE THYROXINE) 1.08 ng/dL (0.9-1.8); THYROID STIMULATING HORMONE 1.259 uIU/mL (0.350-4.940)
[2018-07-27] MEDS ORDERED: DOCUSATE SODIUM 100 MG CAP PO SCH (17:00)
[2018-07-27] MEDS: DOXEPIN HCL 25 MG CAP PO SCH (20:32)
[2018-07-27] MEDS: ONDANSETRON HCL INJ 2 MG/ML VIAL IV PRN (20:45)
--- NOTE | 2018-07-27 22:36 | Consultation ---
DATE OF CONSULTATION: July 27, 2018 GI CONSULT NOTE REFERRING PHYSICIAN: Adrian Quiroz MD REASON FOR CONSULT: Diabetic gastroparesis. HISTORY OF PRESENTING ILLNESS: A 42-year-old female who is a patient of my associate, Dr. Melissa. She has a long history of diabetic gastroparesis. She presented with progressive nausea, vomiting, and abdominal discomfort. She has had a preadmission with the same upper GI symptoms in the past. Denies any associated abdominal pain. Lab work on this admission were pretty much unremarkable except white count which was elevated to 17.20. Repeat count has come down to 12.48. Electrolytes unremarkable. BUN 17, creatinine 1.39, and chest x-ray normal. The patient reports no lower GI symptoms. PAST MEDICAL HISTORY: Type 2 diabetes, diabetic gastroparesis, status post gastric pacemaker followed by removal, chronic anemia, depression, osteomyelitis of the lumbar region in July 2016. PAST SURGICAL HISTORY: Appendectomy, cholecystectomy, hysterectomy, tubal ligation, carpal tunnel repair, spinal surgeries, partial gastric resection, gastric pacemaker followed by removal, PEG placement followed by removal. FAMILY HISTORY: Noncontributory. SOCIAL HISTORY: No alcohol, smoking, or any illicit drug use. . Lives with her . FAMILY HISTORY: Noncontributory. MEDICATIONS: Reviewed the MAR. ALLERGIES: NO KNOWN DRUG ALLERGIES. PHYSICAL EXAMINATION VITAL SIGNS: Temperature 97.3, pulse ranging from 106 to 102, respirations 16, blood pressure 109/65, and oxygen saturation 93% on room air. GENERAL: Not in any acute distress. Oral mucosa is moist. Anicteric sclerae. CVS: S1 and S2 regular. LUNGS: Bilaterally grossly clear. ABDOMEN: Soft, nontender. No palpable mass or hernia. Positive bowel sounds. EXTREMITIES: Warm. No leg edema. LABORATORY AND X-RAY DATA: Reviewed. IMPRESSION: Diabetic gastroparesis. PLAN: Continue supportive care. No new recommendation from GI standpoint. I thank Dr. Quiroz for allowing me to participate in the care of this patient. Job#: [id number]
[2018-07-28] VITALS (8 sets, daily range): BP systolic 101–139; BP diastolic 64–85
[2018-07-28 03:13] LABS: BASOPHILS % 0.3 % (0.0-1.0); EOSINOPHILS # (AUTO) 0.1 (0.0-0.4); EOSINOPHILS % 1.3 % (0.0-6.0); HEMATOCRIT 27.8 % (34.2-44.1); HEMOGLOBIN 9.1 g/dL (12.0-16.0); LYMPHOCYTES # (AUTO) 2.5 (1.0-3.2); LYMPHOCYTES % 28.8 % (18.0-39.1); MEAN CORPUSCULAR HEMOGLOBIN 29.9 pg (28-32); MEAN CORPUSCULAR HGB CONC 32.7 g/dL (31-35); MEAN CORPUSCULAR VOLUME 91.4 fL (81-99); MONOCYTES # (AUTO) 0.5 (0.2-0.8); MONOCYTES % 5.7 % (4.4-11.3); NEUTROPHILS # (AUTO) 5.5 (2.1-6.9); NEUTROPHILS % 63.7 % (38.7-80.0); PLATELET COUNT 160 x10e3/uL (140-360); RED BLOOD COUNT 3.04 x10e6/uL (3.6-5.1); RED CELL DISTRIBUTION WIDTH 12.4 % (11.7-14.4)
[2018-07-28] MEDS: ONDANSETRON HCL INJ 2 MG/ML VIAL IV PRN ×5 (03:16→19:56)
[2018-07-28] MEDS: MORPHINE SULFATE INJ 4 MG/ML INJ IV PRN ×5 (03:17→19:56)
[2018-07-28 03:33] LABS: % IRON SATURATION 28 % (15-50); ANION GAP 12.9 mmol/L (8-16); BLOOD UREA NITROGEN 8 mg/dL (7-26); BUN/CREATININE RATIO 8 (6-25); CALCIUM 8.4 mg/dL (8.4-10.2); CARBON DIOXIDE 21 mmol/L (22-29); CHLORIDE 109 mmol/L (98-107); CREATININE, SERUM 0.99 mg/dL (0.57-1.11); EST GLOMERULAR FILTRATION RATE > 60 ML/MIN (60-); GLUCOSE 158 mg/dL (74-118); IRON 58 ug/dL (50-170); MAGNESIUM 1.7 MG/DL (1.3-2.1); POTASSIUM 3.9 mmol/L (3.5-5.1); SODIUM 139 mmol/L (136-145); TOTAL IRON BINDING CAPACITY 206 ug/dL (261-478); TRANSFERRIN 147 mg/dL (180-382)
[2018-07-28 03:55] LABS: FERRITIN 473.13 ng/mL (4.63-204.00)
[2018-07-28 04:08] LABS: FOLATE 9.8 ng/mL (7.0-15.4)
[2018-07-28] MEDS: D5.45%NS/KCL 20MEQ 1,000 ML IV SCH (04:46)
[2018-07-28] MEDS: GLIMEPIRIDE 2 MG TAB PO SCH ×2 (07:55→17:00)
[2018-07-28] MEDS: METOCLOPRAMIDE HCL 10 MG/2ML VIAL IV SCH ×4 (07:55→21:11)
[2018-07-28] MEDS: CEFTRIAXONE SOD 1 GM VIAL IV SCH ×2 (09:37→21:11)
[2018-07-28] MEDS: PANTOPRAZOLE 40 MG 10ML VIAL IV SCH (09:37)
[2018-07-28] MEDS: DOCUSATE SODIUM 100 MG CAP PO SCH ×2 (09:37→17:50)
[2018-07-28] MEDS: OYST-CAL-D 500MG TABLET PO SCH ×2 (09:37→17:50)
[2018-07-28] MEDS: GABAPENTIN 100 MG CAP PO SCH ×2 (09:38→17:50)
[2018-07-28] MEDS: INSULIN LISPRO 100 UNIT/1 ML 3ML VIAL SQ SCH ×4 (09:39→21:31)
[2018-07-28] MEDS: DOXEPIN HCL 25 MG CAP PO SCH (21:11)
[2018-07-29] VITALS (10 sets, daily range): BP systolic 116–129; BP diastolic 68–79
[2018-07-29] MEDS: ONDANSETRON HCL INJ 2 MG/ML VIAL IV PRN ×6 (00:13→20:42)
[2018-07-29] MEDS: MORPHINE SULFATE INJ 4 MG/ML INJ IV PRN ×6 (00:13→20:42)
[2018-07-29 05:06] LABS: BASOPHILS % 0.5 % (0.0-1.0); EOSINOPHILS # (AUTO) 0.2 (0.0-0.4); EOSINOPHILS % 1.8 % (0.0-6.0); HEMATOCRIT 26.2 % (34.2-44.1); HEMOGLOBIN 8.5 g/dL (12.0-16.0); LYMPHOCYTES % 24.3 % (18.0-39.1); MEAN CORPUSCULAR HEMOGLOBIN 29.9 pg (28-32); MEAN CORPUSCULAR HGB CONC 32.4 g/dL (31-35); MEAN CORPUSCULAR VOLUME 92.3 fL (81-99); MONOCYTES # (AUTO) 0.5 (0.2-0.8); MONOCYTES % 5.8 % (4.4-11.3); NEUTROPHILS # (AUTO) 5.5 (2.1-6.9); NEUTROPHILS % 67.2 % (38.7-80.0); PLATELET COUNT 155 x10e3/uL (140-360); RED BLOOD COUNT 2.84 x10e6/uL (3.6-5.1); RED CELL DISTRIBUTION WIDTH 12.4 % (11.7-14.4)
[2018-07-29 05:23] LABS: ANION GAP 12.7 mmol/L (8-16); CALCIUM 8.4 mg/dL (8.4-10.2); CREATININE, SERUM 1.03 mg/dL (0.57-1.11); MAGNESIUM 1.5 MG/DL (1.3-2.1); POTASSIUM 3.7 mmol/L (3.5-5.1)
[2018-07-29] MEDS ORDERED: POLYETHYLENE GLYCOL 3350 17 GM PACK PO ONE (07:00)
[2018-07-29] MEDS ORDERED: ZOFRAN4 MG PO (07:06)
[2018-07-29] MEDS ORDERED: REGLAN10 MG PO (07:06)
[2018-07-29] MEDS ORDERED: TYLENOL # 31 EA PO (07:06)
[2018-07-29] MEDS ORDERED: ceftin PO (07:12)
[2018-07-29] MEDS: INSULIN LISPRO 100 UNIT/1 ML 3ML VIAL SQ SCH ×4 (07:30→20:20)
[2018-07-29] MEDS: METOCLOPRAMIDE HCL 10 MG/2ML VIAL IV SCH ×4 (07:30→20:42)
[2018-07-29] MEDS: GLIMEPIRIDE 2 MG TAB PO SCH ×2 (08:00→16:23)
[2018-07-29] MEDS: PANTOPRAZOLE 40 MG 10ML VIAL IV SCH (09:00)
[2018-07-29] MEDS: OYST-CAL-D 500MG TABLET PO SCH ×2 (09:00→16:23)
[2018-07-29] MEDS: GABAPENTIN 100 MG CAP PO SCH ×2 (09:00→16:23)
[2018-07-29] MEDS: CEFTRIAXONE SOD 1 GM VIAL IV SCH ×2 (09:00→20:42)
[2018-07-29] MEDS: DOCUSATE SODIUM 100 MG CAP PO SCH ×2 (09:00→16:23)
[2018-07-29] MEDS ORDERED: BISACODYL 5 MG TAB EC PO NR (13:45)
[2018-07-29] MEDS: POLYETHYLENE GLYCOL 3350 17 GM PACK PO PRN (13:47)
[2018-07-29] MEDS ORDERED: MINERAL OIL 132 ML BTL PR NR (17:45)
[2018-07-29] MEDS: DOXEPIN HCL 25 MG CAP PO SCH (21:58)
[2018-07-30] MEDS: ONDANSETRON HCL INJ 2 MG/ML VIAL IV PRN ×2 (00:44→05:09)
[2018-07-30] MEDS: MORPHINE SULFATE INJ 4 MG/ML INJ IV PRN ×2 (00:44→05:09)
[2018-07-30] MEDS: POLYETHYLENE GLYCOL 3350 17 GM PACK PO PRN (02:05)
[2018-07-30 04:30] VITALS: BP 113/72
[2018-07-30 05:07] LABS: BASOPHILS % 0.6 % (0.0-1.0); EOSINOPHILS # (AUTO) 0.1 (0.0-0.4); EOSINOPHILS % 2.4 % (0.0-6.0); HEMATOCRIT 25.1 % (34.2-44.1); HEMOGLOBIN 8.4 g/dL (12.0-16.0); LYMPHOCYTES # (AUTO) 1.8 (1.0-3.2); LYMPHOCYTES % 36.4 % (18.0-39.1); MEAN CORPUSCULAR HEMOGLOBIN 30.1 pg (28-32); MEAN CORPUSCULAR HGB CONC 33.5 g/dL (31-35); MONOCYTES # (AUTO) 0.3 (0.2-0.8); MONOCYTES % 6.3 % (4.4-11.3); NEUTROPHILS # (AUTO) 2.7 (2.1-6.9); NEUTROPHILS % 53.9 % (38.7-80.0); PLATELET COUNT 141 x10e3/uL (140-360); RED BLOOD COUNT 2.79 x10e6/uL (3.6-5.1); RED CELL DISTRIBUTION WIDTH 12.2 % (11.7-14.4)
[2018-07-30 05:32] LABS: ANION GAP 11.8 mmol/L (8-16); CALCIUM 8.7 mg/dL (8.4-10.2); CREATININE, SERUM 1.11 mg/dL (0.57-1.11); MAGNESIUM 1.6 MG/DL (1.3-2.1); POTASSIUM 3.8 mmol/L (3.5-5.1)
[2018-07-30] MEDS: METOCLOPRAMIDE HCL 10 MG/2ML VIAL IV SCH (07:30)
[2018-07-30] MEDS: INSULIN LISPRO 100 UNIT/1 ML 3ML VIAL SQ SCH (07:30)
[2018-07-30 07:55] VITALS: BP 113/72
[2018-07-30] MEDS: GLIMEPIRIDE 2 MG TAB PO SCH (08:00)
[2018-07-30 08:24] VITALS: BP 117/75
[2018-07-30] MEDS: GABAPENTIN 100 MG CAP PO SCH (08:34)
[2018-07-30] MEDS: PANTOPRAZOLE 40 MG 10ML VIAL IV SCH (08:34)
[2018-07-30] MEDS: OYST-CAL-D 500MG TABLET PO SCH (08:34)
[2018-07-30] MEDS: CEFTRIAXONE SOD 1 GM VIAL IV SCH (08:34)
[2018-07-30] MEDS: DOCUSATE SODIUM 100 MG CAP PO SCH (08:34)
--- NOTE | 2018-07-30 15:57 | Progress Note ---
DATE: July 28, 2018 SUBJECTIVE: Patient reports significant improvement in nausea and vomiting. She is tolerating an oral diet. Reports no abdominal pain. Has had a bowel movement with soft brown stool. REVIEW OF SYSTEMS GENERAL: No fever or chills. RESPIRATORY: No cough or expectoration. CV: No chest pain or palpitations. VITAL SIGNS: Stable. MEDICATIONS: Reviewed JAN. PHYSICAL EXAMINATION GENERAL: Not in any acute distress. Oral mucosa is moist. Anicteric sclerae. ABDOMEN: Soft, nondistended, nontender. No mass or hernia. Positive bowel sounds. IMPRESSION 1. Diabetic gastroparesis. 2. Functional dyspepsia. PLAN: Continue present medical management. Patient can be discharged from GI standpoint to follow up with her water gas operator, Dr. Melissa, as previously scheduled. Job#: [id number]
--- NOTE | 2018-07-31 01:16 | Discharge Summary ---
ADMISSION DIAGNOSES 1. Gastroparesis. 2. Type-2 diabetes. 3. Depression. 4. Urinary tract infection. 5. Acute kidney injury versus chronic kidney disease. 6. Hypocalcemia. 7. Anemia. 8. Tachycardia. 9. Leukocytosis. 10. Constipation. DISCHARGE DIAGNOSES 1. Gastroparesis. 2. Type-2 diabetes. 3. Depression. 4. Urinary tract infection. 5. Acute kidney injury versus chronic kidney disease. 6. Hypocalcemia. 7. Anemia. 8. Tachycardia. 9. Leukocytosis. 10. Constipation. HISTORY: Patient has a history of diabetes, gastroparesis, status post gastric pacemaker with removal, anemia, depression, osteomyelitis of lumbar spine in 2016. Surgical history of cholecystectomy, appendectomy, hysterectomy, tubal ligation, bilateral carpal tunnel release, right eye surgery, lumbar surgery, partial gastric resection, gastric pacer with removal, and PEG placement and removal. Family history, patient's dad had a stroke. Patient's aunt had cancer and patient's mom and sisters had diabetes. HOSPITAL COURSE: A 42-year-old female with history of gastroparesis, admits with abdominal pain, nausea, and vomiting that began Tuesday. She denies fever, diarrhea or sick contacts. Pain is constant and described as a sharp ache. Pain is worse with food and improved with pain meds. On admission, patient had chest x-ray, which was negative. Blood cultures negative. Urine culture came out contaminated. UA was positive for moderate bacteria and blood. Patient was started on promethazine, Reglan, IV pain meds, and IV fluids. GI was consulted per patient's request. Patient resumed on home medicines for depression, diabetes. Patient was started on Rocephin for UTI. Hemoglobin on admission was 11.5. It dropped to 9 and later 8 before discharge. Stool for blood was pending. The patient says she only has a bowel movement about once a week. Patient was started on Os-Mason D for hypocalcemia. After about 3 days, patient is tolerating a regular diet. Still with abdominal pain and nausea, but tolerating the diet nonetheless. On 07/30, patient was discharging home with Tylenol No. 3 and Ceftin for 5 days. She will resume other home medicines and follow up with GI in 1-2 weeks, as well as primary care in 1-2 weeks. On day of discharge, sodium 139, potassium 3.7, GFR of 59, creatinine of 1.03. Hemoglobin 8.5, hematocrit 26.2, WBC of 8.16. Patient understands discharge instructions and agrees to plan. Dictated by: Gracei Islas NP REINIER MENDOZA MD Job#: [id number] CQ
== END 2018-07-30 09:10 | disposition home or self-care (01) ==
LOC: ER 13:31 → ERHOLD 15:42 → IMCU 17:14 → MED/SURG2 07-28 20:16
PROVIDERS: ADMIT Internal Medicine; ATTEND Internal Medicine
DX: E11.43 Type 2 diabetes mellitus with diabetic autonomic (poly)neuropathy (principal); K31.84 Gastroparesis; D72.829 Elevated white blood cell count, unspecified; D64.9 Anemia, unspecified; Z83.3 Family history of diabetes mellitus; Z82.3 Family history of stroke; Z80.9 Family history of malignant neoplasm, unspecified; N39.0 Urinary tract infection, site not specified; K59.00 Constipation, unspecified; N17.9 Acute kidney failure, unspecified; E83.51 Hypocalcemia; R00.0 Tachycardia, unspecified; K30 Functional dyspepsia; F32.9 Major depressive disorder, single episode, unspecified; Z79.4 Long term (current) use of insulin
CPT/HCPCS: 36415 ×5; 71045; 80048 ×4; 80053; 80061; 81001; 82607; 82728; 82746; 82948 ×5; 83036; 83540; 83690; 83735 ×4; 84439; 84443; 84466; 85025 ×5; 87040; 87086; 93005; 99284; G0378 ×5; J0696 ×4; J1200; J1630; J2270 ×6; J2405 ×5; J2550 ×2; J2765 ×5; J7030; J0360

== ENCOUNTER 2018-11-02 02:05 | Emergency (ER) | payer MEDICARE, OTHER ==
[~2018-11-02] VITALS: Ht 167.6 cm; Wt 83.0 kg
[~2018-11-02 02:05] MED LIST changes: +TYLENOL # 31 EA PO; +ceftin PO
[2018-11-02] MEDS ORDERED: ONDANSETRON HCL INJ 2 MG/ML VIAL IV STA (02:19)
[2018-11-02] MEDS ORDERED: PANTOPRAZOLE 40 MG 10ML VIAL IV STA (02:19)
[2018-11-02] MEDS ORDERED: DIPHENHYDRAMINE HCL INJ 50 MG/ML VIAL IV ONE (02:30)
[2018-11-02] MEDS ORDERED: SODIUM CHLORIDE 0.9% 1000ML 1,000 ML IV ONE (02:30)
[2018-11-02] MEDS ORDERED: METOCLOPRAMIDE HCL 10 MG/2ML VIAL IV ONE (02:30)
[2018-11-02] MEDS ORDERED: DICYCLOMINE HCL 20 MG/2 ML VIAL IM ONE (02:30)
[2018-11-02 02:57] LABS: CLARITY,URINE CLOUDY (CLEAR); COLOR,URINE YELLOW (YELLOW); LEUKOCYTE ESTERASE ,URINE NEGATIVE (NEGATIVE); NITRITE,URINE NEGATIVE (NEGATIVE)
[2018-11-02 02:58] LABS: AMPHETAMINES SCREEN,URINE NEGATIVE (NEGATIVE); BENZODIAZEPINES SCREEN,URINE NEGATIVE (NEGATIVE); BILIRUBIN,URINE NEGATIVE (NEGATIVE); KETONES,URINE NEGATIVE (NEGATIVE); PHENCYCLIDINE SCREEN,URINE NEGATIVE (NEGATIVE); PROTEIN,URINE DIPSTICK 3+ (NEGATIVE); URINE UROBILINOGEN 0.2 mg/dL (0.2 - 1)
[2018-11-02 03:03] LABS: BACTERIA,URINE MANY /HPF; EPITHELIAL CELLS,URINE MANY /LPF
--- NOTE | 2018-11-02 03:04 | NUR ---
patient taken to radilogy department
[2018-11-02 03:05] LABS: CALCIUM OXALATE CRYSTALS,UR FEW (FEW); MUCUS,URINE FEW (RARE)
[2018-11-02 03:13] LABS: BASOPHILS % 0.3 % (0.0-1.0); EOSINOPHILS # (AUTO) 0.1 (0.0-0.4); EOSINOPHILS % 0.7 % (0.0-6.0); HEMATOCRIT 31.1 % (34.2-44.1); HEMOGLOBIN 10.8 g/dL (12.0-16.0); LYMPHOCYTES # (AUTO) 1.7 (1.0-3.2); LYMPHOCYTES % 24.2 % (18.0-39.1); MEAN CORPUSCULAR HEMOGLOBIN 30.5 pg (28-32); MEAN CORPUSCULAR HGB CONC 34.7 g/dL (31-35); MEAN CORPUSCULAR VOLUME 87.9 fL (81-99); MONOCYTES # (AUTO) 0.4 (0.2-0.8); MONOCYTES % 5.6 % (4.4-11.3); NEUTROPHILS # (AUTO) 4.8 (2.1-6.9); NEUTROPHILS % 68.9 % (38.7-80.0); PLATELET COUNT 205 x10e3/uL (140-360); RED BLOOD COUNT 3.54 x10e6/uL (3.6-5.1); RED CELL DISTRIBUTION WIDTH 11.8 % (11.7-14.4)
--- NOTE | 2018-11-02 03:43 | Diagnostic Imaging Report ---
EXAM: ABDOMEN ACUTE SERIES W/PA CXR INDICATION: Abdominal pain COMPARISON: AP view of the chest July 26, 2018 FINDINGS: LINES/TUBES: Left subclavian chest port. LUNGS: No consolidations or edema. PLEURA: No effusions or pneumothorax. HEART AND MEDIASTINUM: Normal size and contour. BOWEL PATTERN: Non-obstructed bowel gas pattern. BONES AND SOFT TISSUES: No acute bone findings. No abnormal calcifications. Right upper quadrant cholecystectomy clips. Generator projects over the right buttock with sacral leads. Surgical sutures left upper quadrant of the abdomen. IMPRESSION: No acute thoracic abnormality. No evidence for bowel obstruction. Large amount of retained stool. Signed by: Dr. Dianna Lock M.D. on 11/02/2018 3:40 AM
--- NOTE | 2018-11-02 03:52 | NUR ---
port accessed succesfully by glen alvarado RN
[2018-11-02 04:28] LABS: ALANINE AMINOTRANSFERASE 14 IU/L (0-55); BLOOD UREA NITROGEN 7 mg/dL (7-26); BUN/CREATININE RATIO 8 (6-25); CALCIUM 8.7 mg/dL (8.4-10.2); CARBON DIOXIDE 21 mmol/L (22-29); CHLORIDE 103 mmol/L (98-107); CREATININE, SERUM 0.93 mg/dL (0.57-1.11); EST GLOMERULAR FILTRATION RATE > 60 ML/MIN (60-); GLUCOSE 161 mg/dL (74-118); SODIUM 135 mmol/L (136-145)
[2018-11-02 04:29] LABS: ALBUMIN 3.6 g/dL (3.5-5.0); ALBUMIN/GLOBULIN RATIO 1.2 (0.8-2.0); ALKALINE PHOSPHATASE 95 IU/L (40-150); AMYLASE 70 U/L (25-125); LIPASE 15 U/L (8-78)
[2018-11-02] MEDS ORDERED: POTASSIUM CHLORIDE 20MEQ/15ML UDC PO ONE (04:30)
[2018-11-02] MEDS ORDERED: POTASSIUM CHLORIDE 20MEQ/15ML UDC ONE (04:51)
[2018-11-02] MEDS ORDERED: HEPARIN SOD (PORCINE) 1000 UNIT/ML SDV ONE (05:04)
[2018-11-02 05:10] VITALS: BP 178/109
== END 2018-11-02 05:13 | disposition home or self-care (01) ==
LOC: ER 02:05
DX: R10.13 Epigastric pain (principal); R11.2 Nausea with vomiting, unspecified; K52.9 Noninfective gastroenteritis and colitis, unspecified; E87.6 Hypokalemia
CPT/HCPCS: 36415; 74022; 80053; 80307; 81001; 82150; 83690; 83735; 85025; 99284; J0500; J1200; J1644; J2405; J2765; J7030; J1642

== ENCOUNTER 2019-06-29 00:12 | Emergency (ER) | payer MEDICARE, OTHER ==
[~2019-06-29] VITALS: Ht 167.6 cm; Wt 83.0 kg
--- NOTE | 2019-06-29 00:59 | Diagnostic Imaging Report ---
EXAMINATION: CHEST SINGLE (PORTABLE) INDICATION: Chest pain COMPARISON: None FINDINGS: AP view TUBES and LINES: Left chest wall port with left subclavian central venous catheter component, tip in the superior cavoatrial junction.. LUNGS: Lungs are well inflated. Lungs are clear. There is no evidence of pneumonia or pulmonary edema. PLEURA: No pleural effusion or pneumothorax. HEART AND MEDIASTINUM: The cardiomediastinal silhouette is unremarkable. BONES AND SOFT TISSUES: No acute osseous lesion. Soft tissues are unremarkable. UPPER ABDOMEN: No free air under the diaphragm. IMPRESSION: No acute thoracic abnormality. Signed by: Owen Garcia DO on 06/29/2019 12:55 AM
[2019-06-29 02:20] LABS: BASOPHILS # (AUTO) 0.1 (0.0-0.1); BASOPHILS % 0.7 % (0.0-1.0); EOSINOPHILS # (AUTO) 0.1 (0.0-0.4); EOSINOPHILS % 1.6 % (0.0-6.0); HEMATOCRIT 29.3 % (34.2-44.1); HEMOGLOBIN 9.8 g/dL (12.0-16.0); LYMPHOCYTES # (AUTO) 2.5 (1.0-3.2); MEAN CORPUSCULAR HEMOGLOBIN 30.3 pg (28-32); MEAN CORPUSCULAR HGB CONC 33.4 g/dL (31-35); MEAN CORPUSCULAR VOLUME 90.7 fL (81-99); MONOCYTES # (AUTO) 0.6 (0.2-0.8); MONOCYTES % 7.8 % (4.4-11.3); NEUTROPHILS # (AUTO) 4.3 (2.1-6.9); NEUTROPHILS % 56.4 % (38.7-80.0); PLATELET COUNT 169 x10e3/uL (140-360); RED BLOOD COUNT 3.23 x10e6/uL (3.6-5.1); RED CELL DISTRIBUTION WIDTH 12.2 % (11.7-14.4)
[2019-06-29 02:37] LABS: ALANINE AMINOTRANSFERASE 6 IU/L (0-55); ALBUMIN 3.4 g/dL (3.5-5.0); ALBUMIN/GLOBULIN RATIO 1.1 (0.8-2.0); ALKALINE PHOSPHATASE 133 IU/L (40-150); BLOOD UREA NITROGEN 23 mg/dL (7-26); BUN/CREATININE RATIO 23 (6-25); CALCIUM 8.7 mg/dL (8.4-10.2); CARBON DIOXIDE 23 mmol/L (22-29); CHLORIDE 104 mmol/L (98-107); CREATINE KINASE 60 IU/L (29-168); EST GLOMERULAR FILTRATION RATE > 60 ML/MIN (60-); GLUCOSE 208 mg/dL (74-118); SODIUM 135 mmol/L (136-145)
[2019-06-29 02:58] VITALS: BP 130/94
--- OUTSIDE RECORDS SUMMARY | 2019-06-29 04:36 | XMS REPORT | Summary of Care ---
Author Author [facility] Organization [facility] Address Unknown Phone Unavailable Encounter SCARLETT Pfeiffer(JUNG) [id number] Date(s): 05/22/18 - 05/22/18 [facility] [address] [place] [address]- Encounter Diagnosis Full incontinence of feces (Final) - 05/31/18 Type 2 diabetes mellitus without complications (Final) - Essential (primary) hypertension (Final) - Anxiety disorder, unspecified (Final) - Major depressive disorder, single episode, unspecified (Final) - Gastro-esophageal reflux disease without esophagitis (Final) - USP (current) use of insulin (Final) - Discharge Disposition: Home or Self Care Attending Physician: Tucker Leahy MD Admitting Physician: Tucker Leahy MD Referring Physician: Tucker Leahy MD Vital Signs 1 2 3 Most recent to oldest [Reference Range]: 167.64 cm (05/18/18 4:41 PM) Height 113/76 mmHg (05/22/18 5:45 PM) 125/65 mmHg (05/22/18 5:30 PM) 120/74 mmHg (05/22/18 5:15 PM) Blood Pressure [90-140/60-90 mmHg] 14 BRMIN (05/22/18 6:00 PM) 20 BRMIN (05/22/18 5:45 PM) 17 BRMIN (05/22/18 5:30 PM) Respiratory Rate [14-20 BRMIN] 92 bpm (05/22/18 1:15 PM) Peripheral Pulse Rate [60-100 bpm] 80.71 kg (05/22/18 2:33 PM) Weight 28.72 m2 (05/22/18 2:33 PM) Body Mass Index Problem List Condition Effective Dates Status Health Status Informant Anemia(Confirmed) Resolved Diabetes(Confirmed) Resolved GERD Resolved (gastroesophageal reflux disease)(Confirmed) Gastroparesis(Confir Resolved med) HTN Resolved (hypertension)(Confi rmed) Anxiety and Resolved depression(Confirmed ) Vertigo(Confirmed) Active Allergies, Adverse Reactions, Alerts Substance Reaction Severity Status NKDA Active Medications acetaZOLAMIDE 250 mg, Route: IV, Drug form: PDR/INJ, ONCE, Dosing Weight 80.71, kg, PRN Cramps , Priority: NOW, Start date: 05/22/18 17:01:00 CDT Notes: (Same as: Diamox) Start Date: 05/22/18 Stop Date: 05/26/18 Status: Discontinued albuterol 90 mcg/inh inhalation aerosol 2 puff, Route: INHALER, Drug Form: AERO/A, Dosing Weight 85.455, kg, ONCE, PRN W heezing, Start date: 05/22/18 13:20:00 CDT, On arrival Notes: Albuterol 90 microgram/inh 8gm HFAWASTE: Aerosol - Return to Pharmacy [facility] as: Marylou Aguayo Start Date: 05/22/18 Stop Date: 05/22/18 Status: Discontinued Ancef 2 gm, Route: IV, PRE OP, Dosing Weight 80.71, kg, Start date: 05/22/18 16:00:00 CDT, Duration: 30 day, Stop date: 06/21/18 15:59:00 CDT, ABX Indication: Surgica l Prophylaxis Start Date: 05/22/18 Stop Date: 05/22/18 Status: Completed ANES albuterol 90 mcg/inh inhalation aerosol 2 puff, Route: INHALER, Drug Form: AERO/A, Dosing Weight 80.71, kg, Q5Min, PRN W heezing, Start date: 05/22/18 17:33:00 CDT, Duration: 4 doses or times, Stop carlos e: Limited # of times Notes: Albuterol 90 microgram/inh 8gm HFAWASTE: Aerosol - Return to Pharmacy [facility] as: Radhaolin Proventil Start Date: 05/22/18 Stop Date: 05/26/18 Status: Discontinued ANES albuterol 90 mcg/inh inhalation aerosol 2 puff, Route: INHALER, Drug Form: AERO/A, Dosing Weight 80.71, kg, Q5Min, PRN W heezing, Start date: 05/22/18 17:01:00 CDT, Duration: 4 doses or times, Stop carlos e: Limited # of times Notes: Albuterol 90 microgram/inh 8gm HFAWASTE: Aerosol - Return to Pharmacy [facility] as: Ventolin, Proventil Start Date: 05/22/18 Stop Date: 05/22/18 Status: Discontinued ANES diphenhydrAMINE 12.5 mg, 0.25 mL, Route: IVP, Drug form: INJ, Q6H, Dosing Weight 80.71, kg, PRN Itching, Start date: 05/22/18 17:33:00 CDT, Duration: 30 day, Stop date: 8 17:32:00 CDT Notes: (Same as: Benadryl) Start Date: 05/22/18 Stop Date: 05/26/18 Status: Discontinued ANES diphenhydrAMINE 12.5 mg, 0.25 mL, Route: IVP, Drug form: INJ, Q6H, Dosing Weight 80.71, kg, PRN Itching, Start date: 05/22/18 17:01:00 CDT, Duration: 30 day, Stop date: 8 17:00:00 CDT Notes: (Same as: Benadryl) Start Date: 05/22/18 Stop Date: 05/22/18 Status: Discontinued ANES flumazenil 0.2 mg, 2 mL, Route: IVP, Drug form: INJ, PRN, Dosing Weight 80.71, kg, PRN Chidi odiazepine Reversal, Initial dose, Start date: 05/22/18 17:33:00 CDT, Duration: 30 day, Stop date: 06/21/18 17:32:00 CDT Notes: (Same as: Romazicon) Start Date: 05/22/18 Stop Date: 05/26/18 Status: Discontinued ANES flumazenil 0.2 mg, 2 mL, Route: IVP, Drug form: INJ, PRN, Dosing Weight 80.71, kg, PRN Chidi odiazepine Reversal, Initial dose, Start date: 05/22/18 17:01:00 CDT, Duration: 30 day, Stop date: 06/21/18 17:00:00 CDT Notes: (Same as: Romazicon) Start Date: 05/22/18 Stop Date: 05/22/18 Status: Discontinued ANES HYDROmorphone 0.5 mg, Route: IVP, Q5Min, Dosing Weight 80.71, kg, PRN Pain Score 7-10, Start d ate: 05/22/18 17:01:00 CDT, Duration: 4 doses or times, Stop date: Limited # of times Start Date: 05/22/18 Stop Date: 05/22/18 Status: Completed ANES ketOROLAC 30 mg, 1 mL, Route: IVP, Drug form: INJ, ONCE, Dosing Weight 80.71, kg, Start da te: 05/22/18 17:01:00 CDT, Stop date: 05/22/18 17:01:00 CDT Notes: (Same as:Toradol) IV bolus must be given >15 seconds. Give IM administration slowly and deeply into the muscle.Not for use > 4 days MEDICATION WASTE Product Size: 30 mgProduct Wasted: ___ mg Start Date: 05/22/18 Stop Date: 06/01/18 Status: Discontinued ANES labetalol 10 mg, 2 mL, Route: IVP, Drug form: INJ, Q5Min, Dosing Weight 80.71, kg, PRN Maci vated BP, Start date: 05/22/18 17:33:00 CDT, Duration: 5 doses or times, Stop da te: Limited # of times Start Date: 05/22/18 Stop Date: 05/26/18 Status: Discontinued ANES labetalol 10 mg, 2 mL, Route: IVP, Drug form: INJ, Q5Min, Dosing Weight 80.71, kg, PRN Maci vated BP, Start date: 05/22/18 17:01:00 CDT, Duration: 5 doses or times, Stop da te: Limited # of times Start Date: 05/22/18 Stop Date: 05/22/18 Status: Discontinued ANES meperidine 12.5 mg, 0.25 mL, Route: IVP, Drug form: INJ, Q30Min, Dosing Weight 80.71, kg, P RN Other -See Comment, For shivering, Start date: 05/22/18 17:33:00 CDT, Duratio n: 2 doses or times, Stop date: Limited # of times Notes: (Same as: Demerol) "Use Precaution in Elderly, Seizure disorders, and Re nal impairment" Start Date: 05/22/18 Stop Date: 05/26/18 Status: Discontinued ANES meperidine 12.5 mg, 0.25 mL, Route: IVP, Drug form: INJ, Q30Min, Dosing Weight 80.71, kg, P RN Other -See Comment, For shivering, Start date: 05/22/18 17:01:00 CDT, Duratio n: 2 doses or times, Stop date: Limited # of times Notes: (Same as: Demerol) "Use Precaution in Elderly, Seizure disorders, and Re nal impairment" Start Date: 05/22/18 Stop Date: 05/22/18 Status: Discontinued ANES morphine Sulfate 2 mg, 1 mL, Route: IVP, Drug form: SOLN, Q5Min, Dosing Weight 80.71, kg, PRN Aston n Score 4-6, Start date: 05/22/18 17:01:00 CDT, Duration: 5 doses or times, Stop date: Limited # of times Start Date: 05/22/18 Stop Date: 05/26/18 Status: Discontinued ANES naloxone 0.4 mg, 1 mL, Route: IVP, Drug form: INJ, Q2MIN, Dosing Weight 80.71, kg, PRN Na rcotic Reversal, Start date: 05/22/18 17:33:00 CDT, Duration: 8 doses or times, Stop date: Limited # of times Notes: Same as Narcan Start Date: 05/22/18 Stop Date: 05/26/18 Status: Discontinued ANES naloxone 0.4 mg, 1 mL, Route: IVP, Drug form: INJ, Q2MIN, Dosing Weight 80.71, kg, PRN Na rcotic Reversal, Start date: 05/22/18 17:01:00 CDT, Duration: 8 doses or times, Stop date: Limited # of times Notes: Same as Narcan Start Date: 05/22/18 Stop Date: 05/22/18 Status: Discontinued ANES ondansetron 4 mg, 2 mL, Route: IVP, Drug form: INJ, ONCE, Dosing Weight 80.71, kg, PRN Nause a & Vomiting, Start date: 05/22/18 17:33:00 CDT Notes: (Same as: Zofran) MEDICATION WASTE Product Size: 4 mgProduct Was oj: ___ mg Start Date: 05/22/18 Stop Date: 05/26/18 Status: Discontinued ANES ondansetron 4 mg, 2 mL, Route: IVP, Drug form: INJ, ONCE, Dosing Weight 80.71, kg, PRN Nause a & Vomiting, Start date: 05/22/18 17:01:00 CDT Notes: (Same as: Zofran) MEDICATION WASTE Product Size: 4 mgProduct Was oj: ___ mg Start Date: 05/22/18 Stop Date: 05/22/18 Status: Discontinued ANES oxyCODONE 5 mg, 1 tab, Route: PO, Drug form: TAB, ONCE, Dosing Weight 80.71, kg, PRN Pain Score 4-6, Start date: 05/22/18 17:33:00 CDT Notes: (Same as: Roxicodone) Start Date: 05/22/18 Stop Date: 05/26/18 Status: Discontinued ANES oxyCODONE 10 mg, Route: PO, Drug form: TAB, ONCE, Dosing Weight 80.71, kg, PRN Pain Score 7-10, Start date: 05/22/18 17:33:00 CDT Start Date: 05/22/18 Stop Date: 05/22/18 Status: Completed Bactrim DS 800 mg- 160 mg oral tablet 1 tab, PO, BID, X 10 day, # 20 tab, 0 Refill(s) Start Date: 05/22/18 Stop Date: 06/01/18 Status: Completed busPIRone 7.5 mg oral tablet See Instructions, 1 tab PO daily, 0 Refill(s) Start Date: 05/18/18 Status: Ordered Carafate 1 g/10 mL oral suspension 1 gm=10 ml, PO, QID-Before Meals, # 400 ml, 0 Refill(s) Start Date: 05/18/18 Stop Date: 05/28/18 Status: Ordered ceFAZolin (ANES) Route: IV, Drug form: INJ, ONCE, Stop date: 05/22/18 16:10:00 CDT Start Date: 05/22/18 Stop Date: 05/22/18 Status: Completed CeleBREX 400 mg, 2 cap, Route: PO, Drug form: CAP, PRE OP, Dosing Weight 85.455, kg, Christopher dorsey: NOW, Start date: 05/22/18 13:20:00 CDT, Duration: 30 day, Stop date: 06/21 13:19:00 CDT Notes: NSAID. Please check indication. Not for seizure. (Same As: CeleBREX) Start Date: 05/22/18 Stop Date: 05/22/18 Status: Completed cetirizine 10 mg oral capsule 10 mg=1 cap, PO, Daily, 0 Refill(s) Start Date: 05/18/18 Status: Ordered Dexilant 60 mg oral delayed release capsule 60 mg=1 cap, PO, Daily, # 30 cap, 0 Refill(s) Start Date: 05/18/18 Status: Ordered famotidine 40 mg, 2 tab, Route: PO, Drug form: TAB, ONCALL, Dosing Weight 85.455, kg, Start date: 05/22/18 14:00:00 CDT, Duration: 1 doses or times Notes: (Same as: Pepcid) Start Date: 05/22/18 Stop Date: 05/22/18 Status: Completed famotidine (ANES) Route: IV, Drug form: INJ, ONCE, Stop date: 05/22/18 16:55:00 CDT Start Date: 05/22/18 Stop Date: 05/22/18 Status: Completed fentaNYL (ANES) Route: IV, Drug form: INJ, ONCE, Stop date: 05/22/18 16:15:00 CDT Start Date: 05/22/18 Stop Date: 05/22/18 Status: Completed folic acid 1 mg oral tablet 1 mg=1 tab, PO, Daily, # 30 tab, 0 Refill(s) Start Date: 05/18/18 Status: Ordered gabapentin 300 mg oral capsule 300 mg, 1 cap, Route: PO, PRE OP, Dosing Weight 85.455, kg, Start date: 05/22/18 15:00:00 CDT, Duration: 30 day, Stop date: 06/21/18 14:59:00 CDT Start Date: 05/22/18 Stop Date: 05/22/18 Status: Completed gabapentin 300 mg oral capsule 300 mg=1 cap, PO, BID, # 90 cap, 1 Refill(s) Start Date: 05/18/18 Status: Ordered glimepiride 4 mg oral tablet See Instructions, 1 tab PO BID, 0 Refill(s) Start Date: 05/18/18 Status: Ordered Humulin R (Concentrated) See Instructions, 4 units ac meals, 0 Refill(s) Start Date: 05/18/18 Status: Ordered insulin lispro 8 unit, 0.08 mL, Route: SUB-Q, Drug form: SOLN, Sliding Scale, Dosing Weight 80. 71, kg, PRN Blood Glucose Results, Start date: 05/22/18 17:01:00 CDT, Duration: 30 day, Stop date: 06/21/18 17:00:00 CDT Notes: (Same as: Humalog ) Roll in palms of hands gently; Do not shake `vigorou sly. "Single Patient Use Only " WASTE: F/P - Black; E - [facility] [address] [address] able for 28 days at room temperature.Expires in days from Da te Start Date: 05/22/18 Stop Date: 05/26/18 Status: Discontinued insulin lispro 4 unit, 0.04 mL, Route: SUB-Q, Drug form: SOLN, Sliding Scale, Dosing Weight 80. 71, kg, PRN Blood Glucose Results, Start date: 05/22/18 17:01:00 CDT, Duration: 30 day, Stop date: 06/21/18 17:00:00 CDT Notes: (Same as: Humalog ) Roll in palms of hands gently; Do not shake `vigorou sly. "Single Patient Use Only " WASTE: F/P - Black; E - [facility] [address] able for 28 days at room temperature.Expires in days from Da te Start Date: 05/22/18 Stop Date: 05/26/18 Status: Discontinued insulin lispro 2 unit, 0.02 mL, Route: SUB-Q, Drug form: SOLN, Sliding Scale, Dosing Weight 80. 71, kg, PRN Blood Glucose Results, Start date: 05/22/18 17:01:00 CDT, Duration: 30 day, Stop date: 06/21/18 17:00:00 CDT Notes: (Same as: Humalog ) Roll in palms of hands gently; Do not shake `vigorou sly. "Single Patient Use Only " WASTE: F/P - Black; E - [facility] [address] able for 28 days at room temperature.Expires in days from Da te Start Date: 05/22/18 Stop Date: 05/26/18 Status: Discontinued insulin lispro 6 unit, 0.06 mL, Route: SUB-Q, Drug form: SOLN, Sliding Scale, Dosing Weight 80. 71, kg, PRN Blood Glucose Results, Start date: 05/22/18 17:01:00 CDT, Duration: 30 day, Stop date: 06/21/18 17:00:00 CDT Notes: (Same as: Humalog ) Roll in palms of hands gently; Do not shake `vigorou sly. "Single Patient Use Only " WASTE: F/P - Black; E - [facility] [address] able for 28 days at room temperature.Expires in days from Da te Start Date: 05/22/18 Stop Date: 05/26/18 Status: Discontinued insulin lispro 10 unit, 0.1 mL, Route: SUB-Q, Drug form: SOLN, Sliding Scale, Dosing Weight 80. 71, kg, PRN Blood Glucose Results, Start date: 05/22/18 17:01:00 CDT, Duration: 30 day, Stop date: 06/21/18 17:00:00 CDT Notes: (Same as: Humalog ) Roll in palms of hands gently; Do not shake `vigorou sly. "Single Patient Use Only " WASTE: F/P - Black; E - [facility] [address] able for 28 days at room temperature.Expires in days from Da te Start Date: 05/22/18 Stop Date: 05/26/18 Status: Discontinued insulin lispro 2 unit, 0.02 mL, Route: SUB-Q, Drug form: SOLN, Sliding Scale, Dosing Weight 85. 455, kg, PRN Blood Glucose Results, Start date: 05/22/18 13:20:00 CDT, Duration: 30 day, Stop date: 06/21/18 13:19:00 CDT Notes: (Same as: Humalog ) Roll in palms of hands gently; Do not shake `vigorou sly. "Single Patient Use Only " WASTE: F/P - Black; E - [facility] [address] able for 28 days at room temperature.Expires in days from Da te Start Date: 05/22/18 Stop Date: 05/22/18 Status: Discontinued insulin lispro 4 unit, 0.04 mL, Route: SUB-Q, Drug form: SOLN, Sliding Scale, Dosing Weight 85. 455, kg, PRN Blood Glucose Results, Start date: 05/22/18 13:20:00 CDT, Duration: 30 day, Stop date: 06/21/18 13:19:00 CDT Notes: (Same as: Humalog ) Roll in palms of hands gently; Do not shake `vigorou sly. "Single Patient Use Only " WASTE: F/P - Black; E - [facility] [address] able for 28 days at room temperature.Expires in days from Da te Start Date: 05/22/18 Stop Date: 05/22/18 Status: Discontinued insulin lispro 8 unit, 0.08 mL, Route: SUB-Q, Drug form: SOLN, Sliding Scale, Dosing Weight 85. 455, kg, PRN Blood Glucose Results, Start date: 05/22/18 13:20:00 CDT, Duration: 30 day, Stop date: 06/21/18 13:19:00 CDT Notes: (Same as: Humalog ) Roll in palms of hands gently; Do not shake `vigorou sly. "Single Patient Use Only " WASTE: F/P - Black; E - [facility] [address] able for 28 days at room temperature.Expires in days from Da te Start Date: 05/22/18 Stop Date: 05/22/18 Status: Discontinued insulin lispro 6 unit, 0.06 mL, Route: SUB-Q, Drug form: SOLN, Sliding Scale, Dosing Weight 85. 455, kg, PRN Blood Glucose Results, Start date: 05/22/18 13:20:00 CDT, Duration: 30 day, Stop date: 06/21/18 13:19:00 CDT Notes: (Same as: Humalog ) Roll in palms of hands gently; Do not shake `vigorou sly. "Single Patient Use Only " WASTE: F/P - Black; E - [facility] [address] able for 28 days at room temperature.Expires in days from Da te Start Date: 05/22/18 Stop Date: 05/22/18 Status: Discontinued insulin lispro 10 unit, 0.1 mL, Route: SUB-Q, Drug form: SOLN, Sliding Scale, Dosing Weight 85. 455, kg, PRN Blood Glucose Results, Start date: 05/22/18 13:20:00 CDT, Duration: 30 day, Stop date: 06/21/18 13:19:00 CDT Notes: (Same as: Humalog ) Roll in palms of hands gently; Do not shake `vigorou sly. "Single Patient Use Only " WASTE: F/P - Black; E - [facility] [address] able for 28 days at room temperature.Expires in days from Da te Start Date: 05/22/18 Stop Date: 05/22/18 Status: Discontinued Lactated Ringers Injection IV (ANES) 1000 mL Route: IV, Total Volume: 1,000, Start date: 05/22/18 15:35:00 CDT, Stop date: 16:35:00 CDT Start Date: 05/22/18 Stop Date: 05/22/18 Status: Completed Lantus 100 units/mL 6 unit, SUB-Q, Bedtime, 4-6 unts at bedtime, # 10 mL, 3 Refill(s) Start Date: 05/18/18 Status: Ordered lidocaine (ANES) Route: IV, Drug form: INJ, ONCE, Stop date: 05/22/18 16:25:00 CDT Start Date: 05/22/18 Stop Date: 05/22/18 Status: Completed lidocaine 1% 0.5 mL, Route: INTRADERM, Drug Form: INJ, Dosing Weight 85.455, kg, ONCALL, Star t date: 05/22/18 14:00:00 CDT, Duration: 1 doses or times Notes: Preservative free. (Same as: Xylocaine MPF) Start Date: 05/22/18 Stop Date: 05/26/18 Status: Discontinued lisinopril 5 mg oral tablet 5 mg=1 tab, PO, Daily, # 30 tab, 0 Refill(s) Start Date: 05/18/18 Status: Ordered [id number] 1,000 mL 1,000 mL, Rate: 25 ml/hr, Infuse over: 40 hr, Route: IV, Dosing Weight 85.455 kg , Total Volume: 1,000, Start date: 05/22/18 13:20:00 CDT, Duration: 30 day, Stop date: 06/21/18 13:19:00 CDT, 2.02, m2 Start Date: 05/22/18 Stop Date: 05/26/18 Status: Discontinued meclizine 12.5 mg oral tablet 12.5 mg=1 tab, PO, TID, # 60 tab, 0 Refill(s) Start Date: 05/18/18 Stop Date: 06/07/18 Status: Ordered metoclopramide (ANES) Route: IV, Drug form: INJ, ONCE, Stop date: 05/22/18 16:55:00 CDT Start Date: 05/22/18 Stop Date: 05/22/18 Status: Completed midazolam (ANES) Route: IV, Drug form: SOLN, ONCE, Stop date: 05/22/18 16:10:00 CDT Start Date: 05/22/18 Stop Date: 05/22/18 Status: Completed nabumetone 750 mg oral tablet 750 mg=1 tab, PO, Daily, # 180 tab, 0 Refill(s) Start Date: 05/18/18 Status: Ordered propofol (ANES) Route: IV, Drug form: INJ, ONCE, Stop date: 05/22/18 16:25:00 CDT Start Date: 05/22/18 Stop Date: 05/22/18 Status: Completed Tylenol 1,000 mg, 2 tab, Route: PO, Drug form: TAB, PRE OP, Dosing Weight 85.455, kg, Pr iority: NOW, Start date: 05/22/18 13:20:00 CDT, Duration: 30 day, Stop date: 13:19:00 CDT Notes: Max acetaminophen 4000 mg/day (4 gm/day). (Same as: Tylenol Extra Streng th) Start Date: 05/22/18 Stop Date: 05/22/18 Status: Completed Zofran See Instructions, 0 Refill(s) Start Date: 05/22/18 Status: Ordered Results ELECTROLYTES Most recent to 1 oldest [Reference Range]: Sodium Lvl [135-145 135 mEq/L mEq/L] (05/22/18 1:23 PM) Potassium Lvl 4.5 mEq/L [3.5-5.1 mEq/L] (05/22/18 1:23 PM) Chloride Lvl [95-109 104 mEq/L mEq/L] (05/22/18 1:23 PM) CO2 [24-32 mEq/L] 25 mEq/L (05/22/18 1:23 PM) AGAP [10.0-20.0 10.5 mEq/L mEq/L] (05/22/18 1:23 PM) CHEM PANEL Most recent to 1 oldest [Reference Range]: Creatinine Lvl 1.57 mg/dL [0.50-1.40 mg/dL] *HI* (05/22/18 1:23 PM) eGFR 41 mL/min/1.73m2 1 *NA* (05/22/18 1:23 PM) BUN [7-22 mg/dL] 15 mg/dL (05/22/18 1:23 PM) Glucose Lvl [70-99 116 mg/dL mg/dL] *HI* (05/22/18 1:23 PM) Calcium Lvl 9.0 mg/dL [8.5-10.5 mg/dL] (05/22/18 1:23 PM) 1Result Comment: The eGFR is calculated using the CKD-EPI formula. In most young, healthy individuals the eGFR will be >90 mL/min/1.73m2. The eGFR declines with age. An eGFR of 60-89 may be normal in some populations, particularly the elderly, for whom the CKD-EPI formula has not been extensively validated. Use of the eGFR is not recommended in the following populations: Individuals with unstable creatinine concentrations, including patients and those with serious co-morbid conditions. Patients with extremes in muscle mass or diet. The data above are obtained from the National Kid[employer] Disease Education Program ( NKDEP) which additionally recommends that when the eGFR is used in patients with extremes of body mass index for purposes of drug dosing, the eGFR should be mul tiplied by the estimated BMI. SPECIAL CHEMISTRY Most recent to 1 oldest [Reference Range]: Hgb A1C [<=5.6 %] 5.5 % (05/22/18 1:23 PM) Immunizations No data available for this section Procedures Procedure Date Related Diagnosis Body Site Status Appendectomy Completed Carpal tunnel release Completed Cholecystectomy Completed Dilation and curettage Completed Exploratory laparotomy Completed Gastrostomy Completed Hysterectomy Completed Lumbar spinal fusion Completed Operation Completed Retinal operation Completed Tubal ligation Completed Social History Social History Type Response Substance Abuse Use: None. Exercise Exercise duration: 0. Alcohol Never Smoking Status Never smoker; Exposure to Tobacco Smoke None; Cigarette Smoking Last 365 Days No; Reg Smoking Cessation Counseling No entered on: 05/18/18 Assessment and Plan No data available for this section
--- OUTSIDE RECORDS SUMMARY | 2019-06-29 04:36 | XMS REPORT | Continuity of Care Document ---
Author Author [facility] Organization [facility] Address Unknown Phone Unavailable Care Team Providers Care Recreation Activities Coordinator Name Role Phone [employer] Information [place] Unavailable Unavailable Problems Problem Status Onset Date Classification Date Reported Comments Source Full incontinence of feces 06/01/2018 12/09/2018 [place] M54.5 - LOW BACK PAIN Active 07/05/2016 [facility] [place] 401.9 - HYPERTENSION NO Active 06/01/2013 [facility] [place] Type 2 diabetes mellitus without complications 12/09/2018 [place] Essential hypertension 12/09/2018 [place] Anxiety disorder, unspecified 12/09/2018 [place] Major depressive disorder, single episode, unspecified 12/09/2018 [place] Gastro-esophageal reflux disease without esophagitis 12/09/2018 [place] correction use of insulin 12/09/2018 [place] Anemia Resolved Problem 12/09/2018 [place] Diabetes Resolved Problem 12/09/2018 [place] GERD (Confirmed) Resolved Problem 12/09/2018 [place] Gastroparesis Resolved Problem 12/09/2018 [place] HTN (Confirmed) Resolved Problem 12/09/2018 [place] Anxiety and depression Resolved Problem 12/09/2018 [place] Vertigo Active Problem 12/09/2018 [place] Medications Medication Details Route Status Patient Instructions Ordering Provider Order Date Source Naloxone 0.4 mg, 1 mL, Route: IVP, Drug form: INJ, Q2MIN, Dosing Weight 80.71, kg, PRN Narcotic Reversal, Start date: 05/22/18 17:33:00 CDT, Duration: 8 doses or times, Stop date: Limited # of timesNotes: Same as Narcan No Longer Active 05/22/2018 [place] Diphenhydramine 12.5 mg, 0.25 mL, Route: IVP, Drug form: INJ, Q6H, Dosing Weight 80.71, kg, PRN Itching, Start date: 05/22/18 17:33:00 CDT, Duration: 30 day, Stop date: 06/21/18 17:32:00 CDTNotes: (Same as: Benadryl ) No Longer Active 05/22/2018 [facility] Ondansetron 4 mg, 2 mL, Route: IVP, Drug form: INJ, ONCE, Dosing Weight 80.71, kg, PRN Nausea & Vomiting, Start date: 05/22/18 17:33:00 CDTNotes: (Same as: Zofran) MEDICATION WASTE Product Size: 4 mg Product Wasted: ___ mg No Longer Active 05/22/2018 [facility] ANES albuterol 90 mcg/inh inhalation aerosol 2 puff, Route: INHALER, Drug Form: AERO/A, Dosing Weight 80.71, kg, Q5Min, PRN Wheezing, Start date: 05/22/18 17:33:00 CDT, Duration: 4 doses or times, Stop date: Limited # of timesNotes: Albuterol 90 microgram/inh 8gm HFA WASTE: Aerosol - Return to Pharmacy Same as: Ventolin, Proventil No Longer Active 05/22/2018 [facility] Meperidine 12.5 mg, 0.25 mL, Route: IVP, Drug form: INJ, Q30Min, Dosing Weight 80.71, kg, PRN Other -See Comment, For shivering, Start date: 05/22/18 17:33:00 CDT, Duration: 2 doses or times, Stop date: Limited # of timesNotes: (Same as: Demerol) "Use Precaution in Elderly, Seizure disorders, and Renal impairment" No Longer Active 05/22/2018 [facility] Oxycodone 5 mg, 1 tab, Route: PO, Drug form: TAB, ONCE, Dosing Weight 80.71, kg, PRN Pain Score 4-6, Start date: 05/22/18 17:33:00 CDTNotes: (Same as: Roxicodone) No Longer Active 05/22/2018 [facility] Labetalol 10 mg, 2 mL, Route: IVP, Drug form: INJ, Q5Min, Dosing Weight 80.71, kg, PRN Elevated BP, Start date: 05/22/18 17:33:00 CDT, Duration: 5 doses or times, Stop date: Limited # of times No Longer Active 05/22/2018 [facility] Flumazenil 0.2 mg, 2 mL, Route: IVP, Drug form: INJ, PRN, Dosing Weight 80.71, kg, PRN Benzodiazepine Reversal, Initial dose, Start date: 05/22/18 17:33:00 CDT, Duration: 30 day, Stop date: 06/21/18 17:32:00 CDTNotes: (Same as: Romazicon) No Longer Active 05/22/2018 [place] Insulin Lispro 8 unit, 0.08 mL, Route: SUB-Q, Drug form: SOLN, Sliding Scale, Dosing Weight 80.71, kg, PRN Blood Glucose Results, Start date: 05/22/18 17:01:00 CDT, Duration: 30 day, Stop date: 06/21/18 17:00:00 CD TNotes: (Same as: Humalog ) Roll in palms of hands gently; Do not shake `vigorously. "Single Patient Use Only " WASTE: F/P - Black; E - [facility] Trash Bin Stable for 28 days at room temperature. Expires in days from Date No Longer Active 05/22/2018 [facility] ANES albuterol 90 mcg/inh inhalation aerosol 2 puff, Route: INHALER, Drug Form: AERO/A, Dosing Weight 80.71, kg, Q5Min, PRN Wheezing, Start date: 05/22/18 17:01:00 CDT, Duration: 4 doses or times, Stop date: Limited # of timesNotes: Albuterol 90 microgram/inh 8gm HFA WASTE: Aerosol - Return to Pharmacy Same as: Marylou Aguayo Inactive 05/22/2018 [place] Acetazolamide 250 mg, Route: IV, Drug form: PDR/INJ, ONCE, Dosing Weight 80.71, kg, PRN Cramps, Priority: NOW, Start date: 05/22/18 17:01:00 CDTNotes: (Same as: Diamox) No Longer Active 05/22/2018 [place] Diphenhydramine 12.5 mg, 0.25 mL, Route: IVP, Drug form: INJ, Q6H, Dosing Weight 80.71, kg, PRN Itching, Start date: 05/22/18 17:01:00 CDT, Duration: 30 day, Stop date: 06/21/18 17:00:00 CDTNotes: (Same as: Benadryl ) Inactive 05/22/2018 [place] Meperidine 12.5 mg, 0.25 mL, Route: IVP, Drug form: INJ, Q30Min, Dosing Weight 80.71, kg, PRN Other -See Comment, For shivering, Start date: 05/22/18 17:01:00 CDT, Duration: 2 doses or times, Stop date: Limited # of timesNotes: (Same as: Demerol) "Use Precaution in Elderly, Seizure disorders, and Renal impairment" Inactive 05/22/2018 [place] Ondansetron 4 mg, 2 mL, Route: IVP, Drug form: INJ, ONCE, Dosing Weight 80.71, kg, PRN Nausea & Vomiting, Start date: 05/22/18 17:01:00 CDTNotes: (Same as: Zofran) MEDICATION WASTE Product Size: 4 mg Product Wasted: ___ mg Inactive 05/22/2018 [place] Labetalol 10 mg, 2 mL, Route: IVP, Drug form: INJ, Q5Min, Dosing Weight 80.71, kg, PRN Elevated BP, Start date: 05/22/18 17:01:00 CDT, Duration: 5 doses or times, Stop date: Limited # of times Inactive 05/22/2018 [facility] Ketorolac 30 mg, 1 mL, Route: IVP, Drug form: INJ, ONCE, Dosing Weight 80.71, kg, Start date: 05/22/18 17:01:00 CDT, Stop date: 05/22/18 17:01:00 CDTNotes: (Same as:Toradol) IV bolus must be given >15 seconds. Give IM administration slowly and deeply into the muscle. Not for use > 4 days MEDICATION WASTE Product Size: 30 mg Product Wasted: ___ mg No Longer Active 05/22/2018 [place] Morphine 2 mg, 1 mL, Route: IVP, Drug form: SOLN, Q5Min, Dosing Weight 80.71, kg, PRN Pain Score 4-6, Start date: 05/22/18 17:01:00 CDT, Duration: 5 doses or times, Stop date: Limited # of times No Longer Active 05/22/2018 [place] Hydromorphone 0.5 mg, Route: IVP, Q5Min, Dosing Weight 80.71, kg, PRN Pain Score 7-10, Start date: 05/22/18 17:01:00 CDT, Duration: 4 doses or times, Stop date: Limited # of times Inactive 05/22/2018 [place] Naloxone 0.4 mg, 1 mL, Route: IVP, Drug form: INJ, Q2MIN, Dosing Weight 80.71, kg, PRN Narcotic Reversal, Start date: 05/22/18 17:01:00 CDT, Duration: 8 doses or times, Stop date: Limited # of timesNotes: Same as Narcan Inactive 05/22/2018 [place] Flumazenil 0.2 mg, 2 mL, Route: IVP, Drug form: INJ, PRN, Dosing Weight 80.71, kg, PRN Benzodiazepine Reversal, Initial dose, Start date: 05/22/18 17:01:00 CDT, Duration: 30 day, Stop date: 06/21/18 17:00:00 CDTNotes: (Same as: Romazicon) Inactive 05/22/2018 [place] famotidine (ANES) Route: IV, Drug form: INJ, ONCE, Stop date: 05/22/18 16:55:00 CDT Inactive 05/22/2018 [facility] metoclopramide (ANES) Route: IV, Drug form: INJ, ONCE, Stop date: 05/22/18 16:55:00 CDT Inactive 05/22/2018 [place] Sulfamethoxazole 800 MG / Trimethoprim 160 MG Oral Tablet [Bactrim] 1 tab, PO, BID, X 10 day, # 20 tab, 0 Refill(s) No Longer Active 05/22/2018 [place] lidocaine (ANES) Route: IV, Drug form: INJ, ONCE, Stop date: 05/22/18 16:25:00 CDT Inactive 05/22/2018 [facility] propofol (ANES) Route: IV, Drug form: INJ, ONCE, Stop date: 05/22/18 16:25:00 CDT Inactive 05/22/2018 [facility] fentaNYL (ANES) Route: IV, Drug form: INJ, ONCE, Stop date: 05/22/18 16:15:00 CDT Inactive 05/22/2018 [facility] midazolam (ANES) Route: IV, Drug form: SOLN, ONCE, Stop date: 05/22/18 16:10:00 CDT Inactive 05/22/2018 [facility] ceFAZolin (ANES) Route: IV, Drug form: INJ, ONCE, Stop date: 05/22/18 16:10:00 CDT Inactive 05/22/2018 [facility] Ancef 2 gm, Route: IV, PRE OP, Dosing Weight 80.71, kg, Start date: 05/22/18 16:00:00 CDT, Duration: 30 day, Stop date: 06/21/18 15:59:00 CDT, ABX Indication: Surgical Prophylaxis Inactive 05/22/2018 [facility] Lactated Ringers Injection IV (ANES) 1000 mL Route: IV, Total Volume: 1,000, Start date: 05/22/18 15:35:00 CDT, Stop date: 05/22/18 16:35:00 CDT Inactive 05/22/2018 [facility] gabapentin 300 MG Oral Capsule 300 mg, 1 cap, Route: PO, PRE OP, Dosing Weight 85.455, kg, Start date: 05/22/18 15:00:00 CDT, Duration: 30 day, Stop date: 06/21/18 14:59:00 CDT Inactive 05/22/2018 [facility] Zofran See Instructions, 0 Refill(s) Active 05/22/2018 [facility] Lidocaine Hydrochloride 10 MG/ML Injectable Solution 0.5 mL, Route: INTRADERM, Drug Form: INJ, Dosing Weight 85.455, kg, ONCALL, Start date: 05/22/18 14:00:00 CDT, Duration: 1 doses or timesNotes: Preservative free. (Same as: Xylocaine MPF) No Longer Active 05/22/2018 [facility] Famotidine 40 mg, 2 tab, Route: PO, Drug form: TAB, ONCALL, Dosing Weight 85.455, kg, Start date: 05/22/18 14:00:00 CDT, Duration: 1 doses or timesNotes: (Same as: Pepcid) Inactive 05/22/2018 [facility] Insulin Lispro 2 unit, 0.02 mL, Route: SUB-Q, Drug form: SOLN, Sliding Scale, Dosing Weight 85.455, kg, PRN Blood Glucose Results, Start date: 05/22/18 13:20:00 CDT, Duration: 30 day, Stop date: 06/21/18 13:19:00 C DTNotes: (Same as: Humalog ) Roll in palms of hands gently; Do not shake `vigorously. "Single Patient Use Only " WASTE: F/P - Black; E - Municipal Trash Bin Stable for 28 days at room temperature. Expires in days from Date Inactive 05/22/2018 [place] Tylenol 1,000 mg, 2 tab, Route: PO, Drug form: TAB, PRE OP, Dosing Weight 85.455, kg, Priority: NOW, Start date: 05/22/18 13:20:00 CDT, Duration: 30 day, Stop date: 06/21/18 13:19:00 CDTNotes: Max acetaminophen 4000 mg/day (4 gm/day). (Same as: Tylenol Extra Strength) Inactive 05/22/2018 [place] albuterol 90 mcg/inh inhalation aerosol 2 puff, Route: INHALER, Drug Form: AERO/A, Dosing Weight 85.455, kg, ONCE, PRN Wheezing, Start date: 05/22/18 13:20:00 CDT, On arrivalNotes: Albuterol 90 microgram/inh 8gm HFA WASTE: Aerosol - Return to Pharmacy Same as: Marylou Aguayo Inactive 05/22/2018 [place] Celebrex 400 mg, 2 cap, Route: PO, Drug form: CAP, PRE OP, Dosing Weight 85.455, kg, Priority: NOW, Start date: 05/22/18 13:20:00 CDT, Duration: 30 day, Stop date: 06/21/18 13:19:00 CDTNotes: NSAID. Please check indication. Not for seizure. (Same As: CeleBREX) Inactive 05/22/2018 [place] [id number] 1,000 mL 1,000 mL, Rate: 25 ml/hr, Infuse over: 40 hr, Route: IV, Dosing Weight 85.455 kg, Total Volume: 1,000, Start date: 05/22/18 13:20:00 CDT, Duration: 30 day, Stop date: 06/21/18 13:19:00 CDT, 2.02, m2 No Longer Active 05/22/2018 [place] gabapentin 300 MG Oral Capsule 300 mg=1 cap, PO, BID, # 90 cap, 1 Refill(s) Active 05/18/2018 [place] cetirizine 10 mg oral capsule 10 mg=1 cap, PO, Daily, 0 Refill(s) Active 05/18/2018 [place] Sucralfate 100 MG/ML Oral Suspension [Carafate] 1 gm=10 ml, PO, QID-Before Meals, # 400 ml, 0 Refill(s) Active 05/18/2018 [place] Humulin R (Concentrated) See Instructions, 4 units ac meals, 0 Refill(s) Active 05/18/2018 [place] Insulin Glargine 100 UNT/ML Injectable Solution [Lantus] 6 unit, SUB-Q, Bedtime, 4-6 unts at bedtime, # 10 mL, 3 Refill(s) Active 05/18/2018 [place] busPIRone 7.5 mg oral tablet See Instructions, 1 tab PO daily, 0 Refill(s) Active 05/18/2018 [place] nabumetone 750 mg oral tablet 750 mg=1 tab, PO, Daily, # 180 tab, 0 Refill(s) Active 05/18/2018 [place] lisinopril 5 mg oral tablet 5 mg=1 tab, PO, Daily, # 30 tab, 0 Refill(s) Active 05/18/2018 [place] glimepiride 4 mg oral tablet See Instructions, 1 tab PO BID, 0 Refill(s) Active 05/18/2018 [place] meclizine 12.5 mg oral tablet 12.5 mg=1 tab, PO, TID, # 60 tab, 0 Refill(s) Active 05/18/2018 [place] dexlansoprazole 60 MG Enteric Coated Capsule [Dexilant] 60 mg=1 cap, PO, Daily, # 30 cap, 0 Refill(s) Active 05/18/2018 [place] Folic Acid 1 MG Oral Tablet 1 mg=1 tab, PO, Daily, # 30 tab, 0 Refill(s) Active 05/18/2018 [facility] Allergies, Adverse Reactions, Alerts No Known Medication Allergies Immunizations No Data Provided for This Section Results Order Name Results Value Reference Range Date Interpretation Comments Source CHEM PANEL eGFR 41 05/22/2018 Result Comment: The eGFR is calculated using the [...] from the National Kidney Disease Education Program (NKDEP) which additionally recommends that when the eGFR is used in patients with extremes of body mass index for purposes of drug dosing, the eGFR should be multiplied by the estimated BMI. [place] CHEM PANEL Chloride Lvl 104 95 - 109 05/22/2018 [place] CHEM PANEL CO2 25 24 - 32 05/22/2018 [place] CHEM PANEL Potassium Lvl 4.5 3.5 - 5.1 05/22/2018 [place] CHEM PANEL BUN 15 7 - 22 05/22/2018 [place] CHEM PANEL Creatinine Lvl 1.57 0.50 - 1.40 05/22/2018 [place] CHEM PANEL Glucose Lvl 116 70 - 99 05/22/2018 [place] CHEM PANEL Sodium Lvl 135 135 - 145 05/22/2018 [place] CHEM PANEL AGAP 10.5 10.0 - 20.0 05/22/2018 [place] CHEM PANEL Calcium Lvl 9.0 8.5 - 10.5 05/22/2018 [facility] SPECIAL CHEMISTRY Hgb A1C 5.5 <=5.6 % 05/22/2018 [facility] Pathology Reports No Data Provided for This Section Diagnostic Reports Report Value Date Source Fluoroscopy assist to 1 hour DX No report is required for this exam. Technical component complete. 05/22/2018 [facility] Chest 2 views DX Exam: Two-view chest x-ray Reason for Exam: - N18.3 Chronic kidney disease, stage 3 (moderate) Comparison Exam: X-ray 06/01/2013 Discussion: Cardiomediastinal silhouette is within normal limits. Both hemidiaphragms well visualized. No pulmonary edema or pleural effusions. No focal lung consolidations. Trachea is midline. Left-sided chest port is noted. No acute bony abnormalities. Impression: 1. Unremarkable Two-view chest x-ray. 10/26/2017 [facility] [place] Spine lumbar series DX Exam: Lumbar Spine X-ray, 5 views Reason for Exam: M54.5 Low back pain Comparison Exam: None Discussion: 5 non rib-bearing lumbar vertebral bodies are seen. Vertebral body heights are maintained. No spondylolisthesis or scoliosis. Degenerative disc disease seen at L4/L5 level. No suspicious osteoblastic or osteolytic lesions. Note that a lumbar spine x-ray cannot rule out ligamentous injuries or spinal cord abnormalities. No dilated loops of bowel within the visualized portions of the abdomen and pelvis. Impression: 1. Vertebral body heights are maintained. No spondylolisthesis or scoliosis. Degenerative disc disease seen at L4/L5 level. [facility] [place] [facility] 2 or 3 view DX EXAM: Three view(s) of the cervical spine. INDICATION: Pain, cervical spine. COMPARISON: None. FINDINGS: Technical: On the lateral view, the craniocervical junction to the C7 level is visualized. C7-T1 is not fully included, and if there is persistent clinical concern, consider swimmer's lateral view for further evaluation. Alignment: Intact. Fracture: No acute fracture or subluxation. Odontoid process: Intact. Prevertebral soft tissues: Within normal limits. Spondylosis: No substantial intervertebral disc space narrowing. IMPRESSION: 1. No acute fracture of the visualized portion of the cervical spine. 01/26/2016 [facility] Consultation Notes No Data Provided for This Section Discharge Summaries No Data Provided for This Section History and Physicals No Data Provided for This Section Vital Signs Vital Sign Value Date Comments Source Respitory Rate 14 05/22/2018 [place] Systolic (mm Hg) 113 05/22/2018 [place] Diastolic (mm Hg) 76 05/22/2018 [place] Respitory Rate 20 05/22/2018 [place] Systolic (mm Hg) 125 05/22/2018 [place] Diastolic (mm Hg) 65 05/22/2018 [place] Respitory Rate 17 05/22/2018 [place] Systolic (mm Hg) 120 05/22/2018 [place] Diastolic (mm Hg) 74 05/22/2018 [place] BMI Calculated 28.72 05/22/2018 [place] Weight 80.71 05/22/2018 [place] Heart Rate 92 05/22/2018 [place] Height 167.64 cm 05/18/2018 [place] Encounters Location Location Details Encounter Type Encounter Number Reason For Visit Attending Provider ADM Date DC Date Status Source OD [id number] 401.9 - HYPERTENSION NO SHAYY TEJEDA 06/01/2013 Active [facility] [place] [facility] [place] [facility] [id number] Shayy Tejeda 01/26/2016 01/27/2016 [facility] [place] [facility] [place] [facility] [id number] Shayy Tejeda 07/05/2016 07/06/2016 [facility] [place] [facility] [place] [facility] [id number] Shayy Tejeda 10/26/2017 10/27/2017 [facility] [place] [facility] Phone Message [id number] 12/07/2017 12/09/2017 [facility] [id number] VADIM MORA 12/22/2017 Active [facility] [id number] Shayy Tejeda 12/22/2017 12/22/2017 [facility] [place] [facility] [id number] Tucker Leahy 05/22/2018 05/22/2018 [place] Procedures Procedure Code Date Perfomer Comments Source Appendectomy [id number] [place] Carpal tunnel release [id number] [place] Cholecystectomy [id number] [place] Dilation and curettage [id number] [place] Exploratory laparotomy [id number] [place] Gastrostomy [id number] [place] Hysterectomy [id number] [place] Lumbar spinal fusion [id number] [place] Operation [id number] [place] Retinal operation [id number] [place] Tubal ligation [id number] [place] Assessment and Plan No Data Provided for This Section Plan of Care No Data Provided for This Section Social History Social History Date Source Social History TypeResponse Substance Abuse Use: None. Exercise Exercise duration: 0. Alcohol Never Smoking Status Never smoker; Exposure to Tobacco Smoke None; Cigarette Smoking Last 365 Days No; Reg Smoking Cessation Counseling No entered on: 05/18/18 05/18/2018 [place] No data available for this section 12/22/2017 [facility] No data available for this section 10/27/2017 [facility] [place] Family History No Data Provided for This Section Advance Directives No Data Provided for This Section Functional Status No Data Provided for This Section
== END 2019-06-29 03:05 | disposition home or self-care (01) ==
LOC: ER 00:12
DX: R07.89 Other chest pain (principal); E11.22 Type 2 diabetes mellitus with diabetic chronic kidney disease; I12.9 Hypertensive chronic kidney disease with stage 1 through stage 4 chronic kidney disease, or unspecified chronic kidney disease; N18.9 Chronic kidney disease, unspecified; Z79.4 Long term (current) use of insulin; D64.9 Anemia, unspecified; F41.9 Anxiety disorder, unspecified; F32.9 Major depressive disorder, single episode, unspecified
CPT/HCPCS: 36415; 71045; 80053; 82550; 82553; 84484; 85025; 93005; 99283

== ENCOUNTER 2021-01-19 14:00 | Emergency (ER) | payer MEDICARE, OTHER ==
[~2021-01-19] VITALS: Ht 167.6 cm; Wt 72.6 kg
[2021-01-19] MEDS ORDERED: ASPIRIN 81 MG CHEW TAB PO ONE (14:15)
[2021-01-19] MEDS ORDERED: PANTOPRAZOLE 40 MG 10ML VIAL IV STA (14:40)
[2021-01-19] MEDS ORDERED: ONDANSETRON HCL INJ 2MG/ML 2ML 2 MG/ML VIAL IV STA (14:40)
[2021-01-19] MEDS ORDERED: FAMOTIDINE 20 MG/2 ML VIAL IV STA (14:40)
[2021-01-19] MEDS ORDERED: MORPHINE SULFATE INJ 4 MG/ML INJ 1ML IV PRN (14:45)
[2021-01-19] MEDS ORDERED: HALOPERIDOL LACTATE 5 MG/ML VIAL IM ONE (14:45)
[2021-01-19] MEDS ORDERED: MAALOX/LIDOCAINE/BENADRYL/NYST 30 ML BTL PO ONE (14:45)
[2021-01-19] MEDS ORDERED: SODIUM CHLORIDE 0.9% 1000ML 1,000 ML ONE (15:07)
[2021-01-19 15:14] LABS: BASOPHILS % 0.1 % (0.0-1.0); HEMATOCRIT 30.4 % (34.2-44.1); HEMOGLOBIN 10.2 g/dL (12.0-16.0); LYMPHOCYTES # (AUTO) 0.9 (1.0-3.2); LYMPHOCYTES % 7.8 % (18.0-39.1); MEAN CORPUSCULAR HEMOGLOBIN 29.4 pg (28-32); MEAN CORPUSCULAR HGB CONC 33.6 g/dL (31-35); MEAN CORPUSCULAR VOLUME 87.6 fL (81-99); MONOCYTES # (AUTO) 0.4 (0.2-0.8); MONOCYTES % 3.4 % (4.4-11.3); NEUTROPHILS % 88.3 % (38.7-80.0); PLATELET COUNT 175 x10e3/uL (140-360); RED BLOOD COUNT 3.47 x10e6/uL (3.6-5.1); RED CELL DISTRIBUTION WIDTH 12.1 % (11.7-14.4)
[2021-01-19 15:35] LABS: ALBUMIN 3.9 g/dL (3.5-5.0); ANION GAP 17.6 mmol/L (8-16); CALCIUM 8.7 mg/dL (8.4-10.2); CREATININE, SERUM 1.39 mg/dL (0.57-1.11); POTASSIUM 3.6 mmol/L (3.5-5.1)
[2021-01-19 15:41] LABS: CREATINE KINASE MB 0.8 ng/mL (0-5.0)
[2021-01-19] MEDS ORDERED: OMEPRAZOLE40 MG PO ×2 (16:42→19:58)
[2021-01-19] MEDS ORDERED: ZOFRAN4 MG SL (16:42)
[2021-01-19] MEDS ORDERED: SODIUM CHLORIDE 0.9% 50ML 50 ML ONE (17:22)
[2021-01-19] MEDS ORDERED: IOPAMIDOL 370 MG/ML 200 ML INFUS..BTL INJ ONE (17:22)
[2021-01-19 17:35] LABS: CLARITY,URINE SL CLOUDY (CLEAR); COLOR,URINE YELLOW (YELLOW); KETONES,URINE TRACE (NEGATIVE); LEUKOCYTE ESTERASE ,URINE NEGATIVE (NEGATIVE); NITRITE,URINE NEGATIVE (NEGATIVE); PROTEIN,URINE DIPSTICK >=300 (NEGATIVE); URINE UROBILINOGEN 0.2 mg/dL (0.2 - 1)
[2021-01-19 17:36] LABS: AMPHETAMINES SCREEN,URINE NEGATIVE (NEGATIVE); BENZODIAZEPINES SCREEN,URINE NEGATIVE (NEGATIVE); PHENCYCLIDINE SCREEN,URINE NEGATIVE (NEGATIVE)
[2021-01-19 17:46] LABS: BACTERIA,URINE MANY /HPF; EPITHELIAL CELLS,URINE MODERATE /LPF; TRANSITIONAL EPI CELLS,URINE FEW
[2021-01-19] MEDS ORDERED: CEFTRIAXONE SOD 1 GM/50 ML BAG IV ONE (18:15)
[2021-01-19] MEDS ORDERED: CEFTRIAXONE SOD 1 GM in SODIUM CHLORIDE 0.9% 50ML 50 ML IV ONE (18:30)
[2021-01-19] MEDS ORDERED: FENTANYL CITRATE/PF 100MCG/2 ML INJ IV ONE (19:00)
[2021-01-19] MEDS ORDERED: CEPHALEXIN500 MG PO ×2 (19:20→19:58)
[2021-01-19] MEDS ORDERED: HEPARIN 500 UNITS/5ML MDV INJ ONE (19:50)
[2021-01-19] MEDS ORDERED: ZUPLENZ4 MG PO (19:58)
[2021-01-19 20:03] VITALS: BP 111/75
== END 2021-01-19 20:04 | disposition home or self-care (01) ==
LOC: ER 14:44
DX: R10.13 Epigastric pain (principal); K31.84 Gastroparesis; E13.65 Other specified diabetes mellitus with hyperglycemia; F41.9 Anxiety disorder, unspecified
CPT/HCPCS: 36415; 74177; 80053; 80307; 81001; 82550; 82553; 84484; 84702; 85025; 99284; C9113; J0696; J1630; J2270; J2405; J3010; J7030; Q9967

== ENCOUNTER 2021-03-31 16:09 | Emergency (ER) | payer MEDICARE, OTHER ==
[~2021-03-31] VITALS: Ht 167.6 cm; Wt 72.6 kg
[~2021-03-31 16:09] MED LIST changes: +CEPHALEXIN500 MG PO; +OMEPRAZOLE40 MG PO; +ZOFRAN4 MG SL; +ZUPLENZ4 MG PO
[2021-03-31 17:43] VITALS: BP 120/65
== END 2021-03-31 17:55 | disposition home or self-care (01) ==
LOC: ER 17:54
DX: M54.5 Low back pain (principal); I10 Essential (primary) hypertension; E11.9 Type 2 diabetes mellitus without complications; N18.9 Chronic kidney disease, unspecified
CPT/HCPCS: 99283

== ENCOUNTER 2021-04-15 15:07 | Inpatient (IN) | payer MEDICARE, OTHER ==
[~2021-04-15] VITALS: Ht 170.2 cm; Wt 89.8 kg
[2021-04-15 15:56] LABS: CLARITY,URINE SL CLOUDY (CLEAR); COLOR,URINE AMBER (YELLOW)
[2021-04-15 15:57] LABS: KETONES,URINE TRACE (NEGATIVE); LEUKOCYTE ESTERASE ,URINE NEGATIVE (NEGATIVE); NITRITE,URINE NEGATIVE (NEGATIVE); PROTEIN,URINE DIPSTICK 2+ (NEGATIVE); URINE UROBILINOGEN 0.2 mg/dL (0.2 - 1)
[2021-04-15 16:11] LABS: RBC,URINE 0-5 /HPF (0-5); WBC,URINE (MAN) 0-5 /HPF (0-5)
[2021-04-15 16:12] LABS: AMORPHOUS SEDIMENT,URINE FEW (FEW); BACTERIA,URINE FEW /HPF; EPITHELIAL CELLS,URINE MODERATE /LPF
[2021-04-15 17:42] LABS: BASOPHILS % 0.4 % (0.0-1.0); EOSINOPHILS # (AUTO) 0.1 (0.0-0.4); EOSINOPHILS % 0.6 % (0.0-6.0); HEMATOCRIT 32.6 % (34.2-44.1); HEMOGLOBIN 10.8 g/dL (12.0-16.0); LYMPHOCYTES % 24.2 % (18.0-39.1); MEAN CORPUSCULAR HEMOGLOBIN 30.4 pg (28-32); MEAN CORPUSCULAR HGB CONC 33.1 g/dL (31-35); MEAN CORPUSCULAR VOLUME 91.8 fL (81-99); MONOCYTES # (AUTO) 0.5 (0.2-0.8); MONOCYTES % 6.2 % (4.4-11.3); NEUTROPHILS # (AUTO) 5.5 (2.1-6.9); NEUTROPHILS % 68.2 % (38.7-80.0); PLATELET COUNT 168 x10e3/uL (140-360); RED BLOOD COUNT 3.55 x10e6/uL (3.6-5.1); RED CELL DISTRIBUTION WIDTH 11.5 % (11.7-14.4)
[2021-04-15] MEDS ORDERED: SODIUM CHLORIDE 0.9% 1000ML 1,000 ML IV ONE ×2 (17:45)
[2021-04-15 18:00] LABS: ALANINE AMINOTRANSFERASE 12 IU/L (0-55); ALBUMIN 3.7 g/dL (3.5-5.0); ALBUMIN/GLOBULIN RATIO 1.2 (0.8-2.0); ALKALINE PHOSPHATASE 120 IU/L (40-150); ANION GAP 18.9 mmol/L (8-16); BLOOD UREA NITROGEN 28 mg/dL (7-26); BUN/CREATININE RATIO 11 (6-25); CALCIUM 7.9 mg/dL (8.4-10.2); CARBON DIOXIDE 20 mmol/L (22-29); CHLORIDE 100 mmol/L (98-107); CREATINE KINASE 74 IU/L (29-168); CREATININE, SERUM 2.56 mg/dL (0.57-1.11); EST GLOMERULAR FILTRATION RATE 20 ML/MIN (60-); GLUCOSE 106 mg/dL (74-118); POTASSIUM 4.9 mmol/L (3.5-5.1); SODIUM 134 mmol/L (136-145)
[2021-04-15] MEDS ORDERED: CALCIUM GLUCONATE 10% INJ 13.95 MEQ in SODIUM CHLORIDE 0.9% 100 ML 100 ML IV ONE ×2 (18:30→23:00)
[2021-04-15] MEDS ORDERED: MULTIVITAMINS- 12 INJECTION 10 ML, FOLIC ACID MDV 5 MG, THIAMINE HCL INJ 500 MG in SODI... IV ONE (18:30)
[2021-04-15] MEDS ORDERED: DEXTROSE 50% SYRINGE 50 ML IV PRN (19:30)
[2021-04-15] MEDS: INSULIN REGULAR, HUMAN 100 UNIT/1 ML 3ML VIAL SQ SCH (21:00)
[2021-04-16] MEDS: SODIUM CHLORIDE 0.9% 1000ML 1,000 ML IV SCH ×4 (03:30→15:00)
[2021-04-16 05:19] LABS: BASOPHILS % 0.4 % (0.0-1.0); EOSINOPHILS % 0.4 % (0.0-6.0); HEMATOCRIT 29.8 % (34.2-44.1); HEMOGLOBIN 9.5 g/dL (12.0-16.0); LYMPHOCYTES # (AUTO) 1.2 (1.0-3.2); LYMPHOCYTES % 18.4 % (18.0-39.1); MEAN CORPUSCULAR HEMOGLOBIN 29.9 pg (28-32); MEAN CORPUSCULAR HGB CONC 31.9 g/dL (31-35); MEAN CORPUSCULAR VOLUME 93.7 fL (81-99); MONOCYTES # (AUTO) 0.5 (0.2-0.8); MONOCYTES % 7.9 % (4.4-11.3); NEUTROPHILS # (AUTO) 4.9 (2.1-6.9); NEUTROPHILS % 72.5 % (38.7-80.0); PLATELET COUNT 141 x10e3/uL (140-360); RED BLOOD COUNT 3.18 x10e6/uL (3.6-5.1); RED CELL DISTRIBUTION WIDTH 11.8 % (11.7-14.4)
[2021-04-16 05:48] LABS: ALBUMIN 3.2 g/dL (3.5-5.0); ALBUMIN/GLOBULIN RATIO 1.2 (0.8-2.0); ANION GAP 10.5 mmol/L (8-16); CALCIUM 7.2 mg/dL (8.4-10.2); CREATININE, SERUM 1.8 mg/dL (0.57-1.11); POTASSIUM 4.5 mmol/L (3.5-5.1)
[2021-04-16] MEDS: INSULIN REGULAR, HUMAN 100 UNIT/1 ML 3ML VIAL SQ SCH ×4 (07:30→20:02)
[2021-04-16 08:04] VITALS: BP 107/69
[2021-04-16 08:21] VITALS: BP 107/69
[2021-04-16 09:14] VITALS: BP 107/69
[2021-04-16 11:51] VITALS: BP 123/81
[2021-04-16] MEDS ORDERED: LOSARTAN POTASS25 MG PO (13:33)
[2021-04-16 15:24] VITALS: BP 106/73
[2021-04-16 21:00] VITALS: BP 115/82
[2021-04-16] MEDS ORDERED: VANCOMYCIN 1GM/NS 250 ML 250 ML IV ONE (22:15)
[2021-04-17] VITALS (8 sets, daily range): BP systolic 93–160; BP diastolic 72–96
[2021-04-17] MEDS: SODIUM CHLORIDE 0.9% 1000ML 1,000 ML IV SCH ×2 (02:40→18:52)
[2021-04-17] MEDS: INSULIN REGULAR, HUMAN 100 UNIT/1 ML 3ML VIAL SQ SCH ×4 (07:30→20:39)
[2021-04-17] MEDS: PANTOPRAZOLE 40 MG 10ML VIAL IV SCH (09:00)
[2021-04-17 09:15] LABS: BASOPHILS % 0.7 % (0.0-1.0); EOSINOPHILS # (AUTO) 0.1 (0.0-0.4); EOSINOPHILS % 1.5 % (0.0-6.0); HEMATOCRIT 31.8 % (34.2-44.1); HEMOGLOBIN 10.5 g/dL (12.0-16.0); LYMPHOCYTES # (AUTO) 1.4 (1.0-3.2); LYMPHOCYTES % 22.9 % (18.0-39.1); MEAN CORPUSCULAR HEMOGLOBIN 29.8 pg (28-32); MONOCYTES # (AUTO) 0.5 (0.2-0.8); MONOCYTES % 8.2 % (4.4-11.3); NEUTROPHILS # (AUTO) 4.1 (2.1-6.9); NEUTROPHILS % 66.4 % (38.7-80.0); PLATELET COUNT 133 x10e3/uL (140-360); RED BLOOD COUNT 3.52 x10e6/uL (3.6-5.1); RED CELL DISTRIBUTION WIDTH 11.4 % (11.7-14.4)
[2021-04-17 09:30] LABS: MEAN CORPUSCULAR VOLUME 90.3 fL (81-99)
[2021-04-17 09:36] LABS: BLOOD UREA NITROGEN 11 mg/dL (7-26); BUN/CREATININE RATIO 12 (6-25); CALCIUM 7.9 mg/dL (8.4-10.2); CARBON DIOXIDE 24 mmol/L (22-29); CHLORIDE 108 mmol/L (98-107); CREATININE, SERUM 0.94 mg/dL (0.57-1.11); EST GLOMERULAR FILTRATION RATE > 60 ML/MIN (60-); GLUCOSE 112 mg/dL (74-118); SODIUM 138 mmol/L (136-145)
[2021-04-17] MEDS: ONDANSETRON HCL INJ 2MG/ML 2ML 2 MG/ML VIAL IV PRN ×3 (09:47→21:14)
[2021-04-17] MEDS: HYDROCODONE/APAP 10MG-325MG TAB PO PRN ×2 (11:59→18:15)
[2021-04-18] VITALS (8 sets, daily range): BP systolic 112–149; BP diastolic 76–109
[2021-04-18] MEDS: HYDROCODONE/APAP 10MG-325MG TAB PO PRN ×4 (00:22→18:38)
[2021-04-18] MEDS: ONDANSETRON HCL INJ 2MG/ML 2ML 2 MG/ML VIAL IV PRN ×5 (01:22→20:30)
[2021-04-18] MEDS: SODIUM CHLORIDE 0.9% 1000ML 1,000 ML IV SCH ×2 (07:00→20:20)
[2021-04-18] MEDS: INSULIN REGULAR, HUMAN 100 UNIT/1 ML 3ML VIAL SQ SCH ×4 (07:30→20:42)
[2021-04-18] MEDS: PANTOPRAZOLE 40 MG 10ML VIAL IV SCH (09:00)
[2021-04-18] MEDS: VANCOMYCIN 1GM/NS 250 ML 250 ML IV SCH ×2 (11:00→21:49)
[2021-04-19] VITALS (8 sets, daily range): BP systolic 125–148; BP diastolic 85–102
[2021-04-19] MEDS: HYDROCODONE/APAP 10MG-325MG TAB PO PRN ×4 (00:40→19:45)
[2021-04-19] MEDS: ONDANSETRON HCL INJ 2MG/ML 2ML 2 MG/ML VIAL IV PRN ×6 (00:41→21:53)
[2021-04-19] MEDS: INSULIN REGULAR, HUMAN 100 UNIT/1 ML 3ML VIAL SQ SCH ×4 (07:30→21:12)
[2021-04-19] MEDS: PANTOPRAZOLE 40 MG 10ML VIAL IV SCH (09:20)
[2021-04-19] MEDS: VANCOMYCIN 1GM/NS 250 ML 250 ML IV SCH ×2 (09:25→23:30)
[2021-04-19] MEDS: SODIUM CHLORIDE 0.9% 1000ML 1,000 ML IV SCH ×2 (19:30→22:40)
[2021-04-20] MEDS: ONDANSETRON HCL INJ 2MG/ML 2ML 2 MG/ML VIAL IV PRN ×3 (01:59→10:32)
[2021-04-20] MEDS: HYDROCODONE/APAP 10MG-325MG TAB PO PRN ×3 (01:59→14:30)
[2021-04-20 02:00] VITALS: BP 129/81
[2021-04-20 07:01] VITALS: BP 115/80
[2021-04-20] MEDS: INSULIN REGULAR, HUMAN 100 UNIT/1 ML 3ML VIAL SQ SCH (07:30)
[2021-04-20 07:50] VITALS: BP 123/82
[2021-04-20 08:17] VITALS: BP 123/82
[2021-04-20] MEDS: PANTOPRAZOLE 40 MG 10ML VIAL IV SCH (08:40)
[2021-04-20] MEDS ORDERED: VANCOMYCIN 1GM/NS 250 ML 250 ML IV SCH (11:30)
[2021-04-20 12:10] VITALS: BP 126/89
[2021-04-20] MEDS ORDERED: ZYVOX600 MG PO (13:49)
[2021-04-20 16:09] VITALS: BP 122/73
[2021-04-20] MEDS ORDERED: HEPARIN 500 UNITS/5ML MDV INJ ONE (16:30)
== END 2021-04-20 16:55 | disposition home or self-care (01) | DRG 872 ==
LOC: ER 17:22 → ERHOLD 19:31 → IMCU 04-16 07:30 → MED/SURG3 04-16 13:47 → OBSVTOIN 04-17 10:42
PROVIDERS: ADMIT Internal Medicine; ATTEND Internal Medicine
DX: A41.1 Sepsis due to other specified staphylococcus (principal); N17.9 Acute kidney failure, unspecified; R42 Dizziness and giddiness; Z98.84 Bariatric surgery status; D64.9 Anemia, unspecified; E11.22 Type 2 diabetes mellitus with diabetic chronic kidney disease; I12.9 Hypertensive chronic kidney disease with stage 1 through stage 4 chronic kidney disease, or unspecified chronic kidney disease; N18.9 Chronic kidney disease, unspecified; E11.43 Type 2 diabetes mellitus with diabetic autonomic (poly)neuropathy; K31.84 Gastroparesis; E86.1 Hypovolemia; I95.9 Hypotension, unspecified; E86.0 Dehydration; E87.6 Hypokalemia; Z20.822 Contact with and (suspected) exposure to COVID-19; G89.4 Chronic pain syndrome
CPT/HCPCS: 36415; 70450; 71046; 80048; 80053; 80202; 81001; 82550; 82553; 82948; 83605; 84484; 85025; 86850; 86900; 87040; 87071; 87186; 87205; 93005; 96367; 99285; G0378; J0610; J1817; J2405; J3370; J3411; J7030; U0002

== ENCOUNTER 2021-07-21 13:49 | Observation (INO) | payer MEDICARE, OTHER ==
[~2021-07-21] VITALS: Ht 170.2 cm; Wt 89.8 kg
[~2021-07-21 13:49] MED LIST changes: +LOSARTAN POTASS25 MG PO; +ZYVOX600 MG PO
[2021-07-21] MEDS ORDERED: SODIUM CHLORIDE 0.9% 1000ML 1,000 ML IV STA (14:30)
[2021-07-21 15:33] LABS: INR 0.91; PROTHROMBIN TIME 12.4 seconds (11.9-14.5)
[2021-07-21 15:34] LABS: PARTIAL THROMBOPLASTIN TIME 24.1 seconds (23.8-35.5)
[2021-07-21 15:38] LABS: BASOPHILS % 0.5 % (0.0-1.0); EOSINOPHILS # (AUTO) 0.1 (0.0-0.4); HEMATOCRIT 31.4 % (34.2-44.1); HEMOGLOBIN 10.1 g/dL (12.0-16.0); LYMPHOCYTES # (AUTO) 1.8 (1.0-3.2); LYMPHOCYTES % 22.8 % (18.0-39.1); MEAN CORPUSCULAR HEMOGLOBIN 29.4 pg (28-32); MEAN CORPUSCULAR HGB CONC 32.2 g/dL (31-35); MEAN CORPUSCULAR VOLUME 91.3 fL (81-99); MONOCYTES # (AUTO) 0.5 (0.2-0.8); MONOCYTES % 5.9 % (4.4-11.3); NEUTROPHILS # (AUTO) 5.6 (2.1-6.9); NEUTROPHILS % 69.4 % (38.7-80.0); PLATELET COUNT 180 x10e3/uL (140-360); RED BLOOD COUNT 3.44 x10e6/uL (3.6-5.1); RED CELL DISTRIBUTION WIDTH 12.3 % (11.7-14.4)
[2021-07-21 15:42] LABS: CLARITY,URINE SL CLOUDY (CLEAR); COLOR,URINE YELLOW (YELLOW); KETONES,URINE NEGATIVE (NEGATIVE); LEUKOCYTE ESTERASE ,URINE NEGATIVE (NEGATIVE); NITRITE,URINE NEGATIVE (NEGATIVE); PROTEIN,URINE DIPSTICK 2+ (NEGATIVE); URINE UROBILINOGEN 0.2 mg/dL (0.2 - 1)
[2021-07-21 15:44] LABS: ALANINE AMINOTRANSFERASE 9 IU/L (0-55); ALBUMIN 3.6 g/dL (3.5-5.0); ALBUMIN/GLOBULIN RATIO 1.2 (0.8-2.0); ALKALINE PHOSPHATASE 110 IU/L (40-150); ANION GAP 14.1 mmol/L (8-16); BLOOD UREA NITROGEN 23 mg/dL (7-26); BUN/CREATININE RATIO 15 (6-25); CALCIUM 8.3 mg/dL (8.4-10.2); CARBON DIOXIDE 23 mmol/L (22-29); CHLORIDE 104 mmol/L (98-107); CREATINE KINASE 87 IU/L (29-168); CREATININE, SERUM 1.58 mg/dL (0.57-1.11); EST GLOMERULAR FILTRATION RATE 36 ML/MIN (60-); GLUCOSE 224 mg/dL (74-118); POTASSIUM 4.1 mmol/L (3.5-5.1); SODIUM 137 mmol/L (136-145)
[2021-07-21 15:45] LABS: AMPHETAMINES SCREEN,URINE NEGATIVE (NEGATIVE); PHENCYCLIDINE SCREEN,URINE NEGATIVE (NEGATIVE)
[2021-07-21 15:46] LABS: BENZODIAZEPINES SCREEN,URINE NEGATIVE (NEGATIVE)
[2021-07-21 15:54] LABS: AMORPHOUS SEDIMENT,URINE MODERATE (FEW); BACTERIA,URINE FEW /HPF
[2021-07-21] MEDS ORDERED: NALOXONE HCL 2MG/2 ML SYRINGE IV ONE (16:00)
[2021-07-21 16:03] LABS: SALICYLATE < 5.0 mg/dL (0-30)
[2021-07-21 23:09] VITALS: BP 165/108
[2021-07-22] VITALS (7 sets, daily range): BP systolic 116–140; BP diastolic 62–92
[2021-07-22] MEDS ORDERED: Vancomycin IV 1 GM in SODIUM CHLORIDE 0.9% 250ML 250 ML IV ONE (00:45)
[2021-07-22] MEDS ORDERED: ACETAMINOPHEN/CODEINE 300MG - 30MG TAB PO PRN (00:45)
[2021-07-22] MEDS ORDERED: HYDRALAZINE HCL 20 MG/ML VIAL IV PRN (00:45)
[2021-07-22] MEDS: CEFEPIME 1 GM in SODIUM CHLORIDE 0.9% 50ML 50 ML IV SCH (01:09)
[2021-07-22] MEDS ORDERED: SODIUM CHLORIDE 0.9% 250ML 250 ML ONE (01:21)
[2021-07-22] MEDS: MORPHINE SULFATE INJ 2 MG/ML SYR IV PRN ×3 (01:34→14:30)
[2021-07-22 06:37] LABS: ANION GAP 12.2 mmol/L (8-16); CALCIUM 8.4 mg/dL (8.4-10.2); CREATININE, SERUM 1.24 mg/dL (0.57-1.11); POTASSIUM 4.2 mmol/L (3.5-5.1)
[2021-07-22 07:04] LABS: THYROID STIMULATING HORMONE 0.202 uIU/mL (0.350-4.940)
[2021-07-22] MEDS: PANTOPRAZOLE SOD 40 MG TABEC PO SCH (07:30)
[2021-07-22] MEDS: METOCLOPRAMIDE HCL 10 MG TAB PO SCH ×4 (07:30→21:11)
[2021-07-22] MEDS: GABAPENTIN 100 MG CAP PO SCH ×2 (08:26→21:11)
[2021-07-22] MEDS: MULTIVITAMINS/MINERALS TAB PO SCH (08:26)
[2021-07-22] MEDS: INSULIN REGULAR, HUMAN 100 UNIT/1 ML SQ SCH ×4 (08:27→21:00)
[2021-07-22] MEDS ORDERED: GABAPENTIN 100 MG CAP PO SCH (09:00)
[2021-07-22] MEDS ORDERED: DOXEPIN HCL 25 MG CAP PO SCH (21:00)
[2021-07-22] MEDS ORDERED: INSULIN GLARGINE 100 UNITS/ML VIAL SC SCH (21:00)
[2021-07-22] MEDS ORDERED: DOXEPIN HCL 10 MG CAP PO SCH (21:24)
[2021-07-23] VITALS: BP 100/62
[2021-07-23] MEDS: CEFEPIME 1 GM in SODIUM CHLORIDE 0.9% 50ML 50 ML IV SCH (01:38)
[2021-07-23 04:00] VITALS: BP 104/54
[2021-07-23] MEDS: PANTOPRAZOLE SOD 40 MG TABEC PO SCH (07:30)
[2021-07-23] MEDS: INSULIN REGULAR, HUMAN 100 UNIT/1 ML SQ SCH ×3 (07:30→16:30)
[2021-07-23] MEDS: METOCLOPRAMIDE HCL 10 MG TAB PO SCH ×3 (07:30→16:30)
[2021-07-23 07:33] VITALS: BP 106/64
[2021-07-23] MEDS: GABAPENTIN 100 MG CAP PO SCH (09:00)
[2021-07-23] MEDS: MULTIVITAMINS/MINERALS TAB PO SCH (09:00)
[2021-07-23] MEDS: ONDANSETRON HCL INJ 2MG/ML 2ML 2 MG/ML VIAL IV PRN ×2 (09:45→16:09)
[2021-07-23] MEDS: MORPHINE SULFATE INJ 2 MG/ML SYR IV PRN ×2 (09:45→16:08)
[2021-07-23 11:32] VITALS: BP 109/76
[2021-07-23 15:24] VITALS: BP 134/78
[2021-07-23] MEDS ORDERED: ONDANSETRON HCL 4 MG ORAL DISINTEGRATING TAB PO PRN (18:15)
[2021-07-28] MEDS ORDERED: ACETAMINOPHEN-1 EAC4 PO (13:11)
== END 2021-07-23 18:40 | disposition home or self-care (01) ==
LOC: ER 14:34 → ERHOLD 16:32 → INTOOBSV 16:32 → MED/SURG 20:26
PROVIDERS: ADMIT Internal Medicine; ATTEND Internal Medicine
DX: G93.41 Metabolic encephalopathy (principal); N17.9 Acute kidney failure, unspecified; I10 Essential (primary) hypertension; F41.9 Anxiety disorder, unspecified; F32.9 Major depressive disorder, single episode, unspecified; E11.22 Type 2 diabetes mellitus with diabetic chronic kidney disease; I12.9 Hypertensive chronic kidney disease with stage 1 through stage 4 chronic kidney disease, or unspecified chronic kidney disease; N18.30 Chronic kidney disease, stage 3 unspecified; E11.43 Type 2 diabetes mellitus with diabetic autonomic (poly)neuropathy; G89.4 Chronic pain syndrome; D63.8 Anemia in other chronic diseases classified elsewhere; E86.0 Dehydration; E11.65 Type 2 diabetes mellitus with hyperglycemia
CPT/HCPCS: 36415 ×3; 70450; 71045; 80048; 80053; 80307; 80329 ×2; 81001; 82550; 82553; 82948 ×3; 83036; 83735; 84443; 84484; 84702; 85025; 85610; 85730; 87040; 93005; 97161; 99284; G0378 ×3; J0692; J1815; J1817; J2270 ×2; J2310; J2405 ×2; J3370; J7030; J7050; J8597 ×2; S0164 ×2; U0002

== ENCOUNTER 2021-08-02 21:39 | Emergency (ER) | payer MEDICARE, OTHER ==
[~2021-08-02] VITALS: Ht 170.2 cm; Wt 89.8 kg
[~2021-08-02 21:39] MED LIST changes: +ACETAMINOPHEN-1 EAC4 PO
[2021-08-02] MEDS ORDERED: ONDANSETRON HCL INJ 2MG/ML 2ML 2 MG/ML VIAL IV STA (21:59)
[2021-08-02] MEDS ORDERED: SODIUM CHLORIDE 0.9% 1000ML 1,000 ML IV ONE (22:00)
[2021-08-02] MEDS ORDERED: METOCLOPRAMIDE HCL 10 MG/2ML VIAL IV ONE (22:00)
== END 2021-08-02 23:15 | disposition left against medical advice (07) ==
LOC: ER 21:57
DX: R10.84 Generalized abdominal pain (principal)

== ENCOUNTER 2022-03-01 19:50 | Inpatient (IN) | payer MEDICARE ==
[~2022-03-01] VITALS: Ht 170.2 cm; Wt 89.8 kg
[2022-03-01] MEDS ORDERED: SODIUM CHLORIDE 0.9% 1000ML 1,000 ML IV SCH (20:00)
[2022-03-01 21:31] LABS: ALANINE AMINOTRANSFERASE 11 IU/L (0-55); ALBUMIN 3.4 g/dL (3.5-5.0); ALBUMIN/GLOBULIN RATIO 0.9 (0.8-2.0); ALKALINE PHOSPHATASE 130 IU/L (40-150); ANION GAP 17.1 mmol/L (8-16); BLOOD UREA NITROGEN 24 mg/dL (7-26); BUN/CREATININE RATIO 8 (6-25); CALCIUM 7.9 mg/dL (8.4-10.2); CARBON DIOXIDE 18 mmol/L (22-29); CHLORIDE 95 mmol/L (98-107); CREATINE KINASE 62 IU/L (29-168); CREATININE, SERUM 2.87 mg/dL (0.57-1.11); GLUCOSE 305 mg/dL (74-118); POTASSIUM 4.1 mmol/L (3.5-5.1); SODIUM 126 mmol/L (136-145)
[2022-03-01 21:35] LABS: BASOPHILS # (AUTO) 0.1 (0.0-0.1); BASOPHILS % 0.4 % (0.0-1.0); EOSINOPHILS # (AUTO) 0.2 (0.0-0.4); EOSINOPHILS % 1.3 % (0.0-6.0); HEMATOCRIT 38.5 % (34.2-44.1); HEMOGLOBIN 12.6 g/dL (12.0-16.0); LYMPHOCYTES # (AUTO) 1.9 (1.0-3.2); LYMPHOCYTES % 13.4 % (18.0-39.1); MEAN CORPUSCULAR HGB CONC 32.7 g/dL (31-35); MEAN CORPUSCULAR VOLUME 91.7 fL (81-99); MONOCYTES # (AUTO) 0.9 (0.2-0.8); MONOCYTES % 6.2 % (4.4-11.3); NEUTROPHILS # (AUTO) 10.7 (2.1-6.9); NEUTROPHILS % 77.4 % (38.7-80.0); PLATELET COUNT 153 x10e3/uL (140-360); RED CELL DISTRIBUTION WIDTH 11.9 % (11.7-14.4)
[2022-03-01] MEDS ORDERED: DEXTROSE 50% SYRINGE 50 ML IV PRN (21:45)
[2022-03-01 21:47] LABS: AMPHETAMINES SCREEN,URINE NEGATIVE (NEGATIVE); BENZODIAZEPINES SCREEN,URINE NEGATIVE (NEGATIVE); PHENCYCLIDINE SCREEN,URINE NEGATIVE (NEGATIVE)
[2022-03-01] MEDS: SODIUM CHLORIDE 0.9% 1000ML 1,000 ML IV SCH (21:55)
[2022-03-01] MEDS: INSULIN REGULAR, HUMAN 100 UNIT/1 ML SQ SCH (21:55)
[2022-03-01] MEDS ORDERED: INSULIN REGULAR, HUMAN 100 UNIT/1 ML ONE (21:58)
[2022-03-01 22:01] LABS: CLARITY,URINE CLOUDY (CLEAR); COLOR,URINE YELLOW (YELLOW); KETONES,URINE NEGATIVE (NEGATIVE); LEUKOCYTE ESTERASE ,URINE NEGATIVE (NEGATIVE); NITRITE,URINE NEGATIVE (NEGATIVE); PROTEIN,URINE DIPSTICK 2+ (NEGATIVE); URINE UROBILINOGEN 0.2 mg/dL (0.2 - 1)
[2022-03-01 22:09] LABS: AMORPHOUS SEDIMENT,URINE MODERATE (FEW); BACTERIA,URINE FEW /HPF; EPITHELIAL CELLS,URINE MANY /LPF; RBC,URINE 0-5 /HPF (0-5); WBC,URINE (MAN) 0-5 /HPF (0-5)
[2022-03-01 22:45] VITALS: BP 121/81
[2022-03-02] VITALS (8 sets, daily range): BP systolic 87–118; BP diastolic 52–82
[2022-03-02 05:54] LABS: BASOPHILS # (AUTO) 0.1 (0.0-0.1); BASOPHILS % 0.7 % (0.0-1.0); EOSINOPHILS # (AUTO) 0.2 (0.0-0.4); EOSINOPHILS % 1.7 % (0.0-6.0); HEMATOCRIT 36.7 % (34.2-44.1); HEMOGLOBIN 11.9 g/dL (12.0-16.0); LYMPHOCYTES # (AUTO) 3.5 (1.0-3.2); LYMPHOCYTES % 30.5 % (18.0-39.1); MEAN CORPUSCULAR HEMOGLOBIN 29.8 pg (28-32); MEAN CORPUSCULAR HGB CONC 32.4 g/dL (31-35); MEAN CORPUSCULAR VOLUME 91.8 fL (81-99); MONOCYTES # (AUTO) 0.7 (0.2-0.8); MONOCYTES % 6.2 % (4.4-11.3); NEUTROPHILS % 60.2 % (38.7-80.0); PLATELET COUNT 198 x10e3/uL (140-360); RED CELL DISTRIBUTION WIDTH 11.9 % (11.7-14.4)
[2022-03-02] MEDS: SODIUM CHLORIDE 0.9% 1000ML 1,000 ML IV SCH ×3 (06:08→21:45)
[2022-03-02 06:39] LABS: CREATINE KINASE 93 IU/L (29-168)
[2022-03-02 06:53] LABS: ALBUMIN 3.1 g/dL (3.5-5.0); ALBUMIN/GLOBULIN RATIO 0.9 (0.8-2.0); ANION GAP 14.7 mmol/L (8-16); CALCIUM 7.6 mg/dL (8.4-10.2); CREATININE, SERUM 2.28 mg/dL (0.57-1.11); POTASSIUM 3.7 mmol/L (3.5-5.1)
[2022-03-02] MEDS: INSULIN REGULAR, HUMAN 100 UNIT/1 ML SQ SCH ×4 (07:30→20:33)
[2022-03-02 14:45] LABS: CREATINE KINASE 77 IU/L (29-168)
[2022-03-02] MEDS: METOCLOPRAMIDE HCL 10 MG TAB PO SCH ×2 (16:31→20:31)
[2022-03-02] MEDS: GABAPENTIN 100 MG CAP PO SCH (16:31)
[2022-03-02] MEDS: Vancomycin IV 1 GM in SODIUM CHLORIDE 0.9% 250ML 250 ML IV SCH (22:28)
[2022-03-03 00:09] VITALS: BP 144/85
[2022-03-03 03:46] VITALS: BP 119/87
[2022-03-03] MEDS: SODIUM CHLORIDE 0.9% 1000ML 1,000 ML IV SCH (05:04)
[2022-03-03] MEDS: INSULIN REGULAR, HUMAN 100 UNIT/1 ML SQ SCH ×2 (07:30→12:39)
[2022-03-03] MEDS ORDERED: PANTOPRAZOLE SOD 40 MG TABEC PO SCH (07:30)
[2022-03-03 08:17] VITALS: BP 132/81
[2022-03-03] MEDS: METOCLOPRAMIDE HCL 10 MG TAB PO SCH ×2 (08:30→12:30)
[2022-03-03] MEDS: GABAPENTIN 100 MG CAP PO SCH (08:54)
[2022-03-03] MEDS: Vancomycin IV 1 GM in SODIUM CHLORIDE 0.9% 250ML 250 ML IV SCH (09:01)
[2022-03-04] MEDS ORDERED: Vancomycin IV 1 GM in SODIUM CHLORIDE 0.9% 250ML 250 ML IV SCH (10:00)
== END 2022-03-03 14:05 | disposition left against medical advice (07) | DRG 872 ==
LOC: ER 19:58 → ERHOLD 21:48 → MED/SURG2 22:39 → OBSVTOIN 03-02 13:37
PROVIDERS: ADMIT Internal Medicine; ATTEND Internal Medicine
PROC: XW03396 Introduction of Ceftolozane/Tazobactam Anti-infective into Peripheral Vein, Percutaneous Approach, New Technology Group 6 (ICD-10-PCS; principal; 2022-03-01)
DX: A41.9 Sepsis, unspecified organism (principal); N39.0 Urinary tract infection, site not specified; E87.1 Hypo-osmolality and hyponatremia; N17.9 Acute kidney failure, unspecified; E87.2 Acidosis; R65.20 Severe sepsis without septic shock; E11.22 Type 2 diabetes mellitus with diabetic chronic kidney disease; I12.9 Hypertensive chronic kidney disease with stage 1 through stage 4 chronic kidney disease, or unspecified chronic kidney disease; N18.9 Chronic kidney disease, unspecified; J45.909 Unspecified asthma, uncomplicated; E86.0 Dehydration; F41.9 Anxiety disorder, unspecified; F32.A Depression, unspecified; E11.43 Type 2 diabetes mellitus with diabetic autonomic (poly)neuropathy; K31.84 Gastroparesis; Z98.84 Bariatric surgery status; Z79.899 Other long term (current) drug therapy; Z20.822 Contact with and (suspected) exposure to COVID-19
CPT/HCPCS: 36415; 70450; 71045; 80053; 80307; 81001; 82550; 82553; 82948; 83605; 84484; 84702; 85025; 87040; 87071; 87205; 93005; 99284; G0378; J1817; J2543; J3370; J7030; J7050; U0002

== ENCOUNTER 2022-04-16 16:31 | Emergency (ER) | payer MEDICARE, OTHER ==
[~2022-04-16] VITALS: Ht 170.2 cm; Wt 89.8 kg
[2022-04-16] MEDS ORDERED: SODIUM CHLORIDE 0.9% 1000ML 1,000 ML IV STA (17:43)
[2022-04-16 19:03] LABS: BASOPHILS % 0.4 % (0.0-1.0); EOSINOPHILS # (AUTO) 0.1 (0.0-0.4); EOSINOPHILS % 0.9 % (0.0-6.0); HEMATOCRIT 31.5 % (34.2-44.1); HEMOGLOBIN 9.7 g/dL (12.0-16.0); LYMPHOCYTES # (AUTO) 1.1 (1.0-3.2); LYMPHOCYTES % 9.8 % (18.0-39.1); MEAN CORPUSCULAR HEMOGLOBIN 29.2 pg (28-32); MEAN CORPUSCULAR HGB CONC 30.8 g/dL (31-35); MEAN CORPUSCULAR VOLUME 94.9 fL (81-99); MONOCYTES # (AUTO) 0.8 (0.2-0.8); MONOCYTES % 7.8 % (4.4-11.3); NEUTROPHILS # (AUTO) 8.6 (2.1-6.9); NEUTROPHILS % 80.5 % (38.7-80.0); PLATELET COUNT 172 x10e3/uL (140-360); RED BLOOD COUNT 3.32 x10e6/uL (3.6-5.1); RED CELL DISTRIBUTION WIDTH 12.3 % (11.7-14.4)
[2022-04-16 19:47] LABS: ALBUMIN 2.8 g/dL (3.5-5.0); ALBUMIN/GLOBULIN RATIO 0.8 (0.8-2.0); ANION GAP 14.7 mmol/L (8-16); CALCIUM 7.6 mg/dL (8.4-10.2); CREATININE, SERUM 1.82 mg/dL (0.57-1.11); POTASSIUM 4.7 mmol/L (3.5-5.1)
[2022-04-16] MEDS ORDERED: AZITHROMYCIN250 MG PO (20:11)
[2022-04-16 20:29] VITALS: BP 119/83
== END 2022-04-16 20:30 | disposition home or self-care (01) ==
LOC: ER 17:05
DX: R42 Dizziness and giddiness (principal); R07.89 Other chest pain; M25.561 Pain in right knee; S49.91XA Unspecified injury of right shoulder and upper arm, initial encounter; W01.0XXA Fall on same level from slipping, tripping and stumbling without subsequent striking against object, initial encounter; Y93.01 Activity, walking, marching and hiking; Y92.89 Other specified places as the place of occurrence of the external cause; J18.9 Pneumonia, unspecified organism; E11.65 Type 2 diabetes mellitus with hyperglycemia; I10 Essential (primary) hypertension; K21.9 Gastro-esophageal reflux disease without esophagitis; R94.31 Abnormal electrocardiogram [ECG] [EKG]
CPT/HCPCS: 36415; 71046; 73020; 73560; 80053; 85025; 93005; 99284; J7030